=== PATIENT | female | born 1985 | race Caucasian/White ===

== ENCOUNTER 2017-12-24 01:32 | Emergency (ER) | payer BC ==
[2017-12-24 01:38] VITALS: RESP 18
[2017-12-24] MEDS ORDERED: SODIUM CHLORIDE 0.9% 1,000 ML IV ONE (02:08)
[2017-12-24] MEDS ORDERED: FAMOTIDINE 20 MG/2 ML VIAL IV STA (02:26)
[2017-12-24] MEDS ORDERED: DICYCLOMINE 10 MG/ML 2 ML AMP IM STA (02:30)
--- NOTE | 2017-12-24 02:30 | ED ---
General Adult HPI - General Chief complaint: Abdominal Pain Stated complaint: Abd pain-18wks Time Seen by Provider: 12/24/17 01:41 Source: patient Mode of arrival: ambulatory Limitations: no limitations - History of Present Illness Initial comments: Sofiya is a female at 18 weeks gestation since the emergency department today for evaluation of nausea, vomiting and diarrhea. Patient reports that she was in her usual state of health throughout the day, she attended [employer] and then her family have lunch at the [employer]. She does report that she ate some crab [place] at the [employer] and she wasn't certain that it tasted right. She reports that she had some mild nausea but was able to go to sleep. She woke from sleep and had multiple episodes of nonbloody nonbilious emesis and multiple episodes of nonbloody diarrhea. She complains of some epigastric abdominal discomfort but reports that upon arrival her nausea has subsided. She does still feel the urge to have a bowel movement. Denies any right upper quadrant abdominal pain, any right lower quadrant abdominal pain or any cramping. She reports that she can still feel the baby move, she's not had any vaginal bleeding, fluid from the vagina cramping or contractions. - Related Data Home Medications Medication Instructions Recorded Confirmed Pnv,Calcium 72/Iron/Folic Acid 1 tab PO DAILY 04/23/15 04/23/15 [Pnv Plus Multivit Tab] Previous Rx's Medication Instructions Recorded Acetaminophen-Codeine 300-30mg 1 - 2 each PO Q4HR PRN #30 tab 04/24/15 [Tylenol w/codeine #3] Ibuprofen [Motrin] 600 mg PO Q6HR PRN #40 tab 04/24/15 Allergies Allergy/AdvReac Type Severity Reaction Status Date / Time No Known Allergies Allergy Verified 12/24/17 01:38 Review of Systems ROS Statement: Those systems with pertinent positive or pertinent negative responses have been documented in the HPI. ROS Other: All systems not noted in ROS Statement are negative. Past Medical History Past Medical History: No Reported History History of Any Multi-Drug Resistant Organisms: None Reported Past Surgical History: No Surgical Hx Reported Past Anesthesia/Blood Transfusion Reactions: No Reported Reaction Past Psychological History: No Psychological Hx Reported Smoking Status: Never smoker Past Alcohol Use History: None Reported Past Drug Use History: None Reported - Past Family History Father Family Medical History: No Reported History General Exam Limitations: no limitations General appearance: alert, in no apparent distress Head exam: Present: atraumatic, normocephalic Eye exam: Present: normal appearance, PERRL ENT exam: Present: normal exam Neck exam: Present: normal inspection Respiratory exam: Present: normal lung sounds bilaterally. Absent: respiratory distress Cardiovascular Exam: Present: regular rate, normal rhythm GI/Abdominal exam: Present: soft, hyperactive bowel sounds, other (Gravid uterus ). Absent: tenderness, guarding, rebound, rigid, hernia Rectal exam: Present: deferred Extremities exam: Present: normal inspection, full ROM. Absent: pedal edema Neurological exam: Present: alert, oriented X3 Psychiatric exam: Present: normal affect, normal mood Skin exam: Present: warm, dry, intact Course Vital Signs 12/24/17 01:35 Temperature 98.2 F Pulse Rate 99 Respiratory 18 Rate Blood Pressure 132/91 O2 Sat by Pulse 99 Oximetry Medical Decision Making - Medical Decision Making Patient was seen and evaluated, history is obtained from the patient She is a well-appearing 32-year-old female with 2 hours of nausea, vomiting and diarrhea. She is currently 18 weeks but not experiencing any abdominal cramping, vaginal bleeding, vaginal discharge or fluid from the vagina. Concern for food bilirubin illness Bedside ultrasound reveals a normal gallbladder, the appendix was not visualized in the right lower or upper quadrant peristalsis of the bowels was visualized on ultrasound In addition bedside ultrasound revealed an active fetus, heart rate in the 140s Patient was treated with IV fluids, Pepcid and Bentyl Labs reveal mild leukocytosis, normal lipase, normal liver function, normal electrolytes Lab results were discussed with the patient who has had no further episodes of diarrhea or vomiting while in the emergency department. She does state she still feels the urge to have a bowel movement but has not had one. She states she is feeling much better. At this time the patient is agreeable for plan for discharge home with supportive care and discussed the importance of oral rehydration therapy. All questions pertaining care were answered best my ability patient was discharged home in stable condition and advised follow-up with her sky line yarder this week. - Lab Data Result diagrams: 12/24/17 02:55 12/24/17 02:55 Lab Results 12/24/17 12/24/17 12/24/17 Range/Units 02:55 02:55 02:55 WBC 11.5 H (3.8-10.6) k/uL RBC 4.54 (3.80-5.40) m/uL Hgb 14.9 (11.4-16.0) gm/dL Hct 43.7 (34.0-46.0) % MCV 96.2 (80.0-100.0) fL MCH 32.9 (25.0-35.0) pg MCHC 34.2 (31.0-37.0) g/dL RDW 14.1 (11.5-15.5) % Plt Count 240 (150-450) k/uL Neutrophils % 68 % Lymphocytes % 25 % Monocytes % 4 % Eosinophils % 1 % Basophils % 0 % Neutrophils # 7.9 H (1.3-7.7) k/uL Lymphocytes # 2.9 (1.0-4.8) k/uL Monocytes # 0.5 (0-1.0) k/uL Eosinophils # 0.1 (0-0.7) k/uL Basophils # 0.0 (0-0.2) k/uL Sodium 137 (137-145) mmol/L Potassium 3.9 (3.5-5.1) mmol/L Chloride 109 H (98-107) mmol/L Carbon Dioxide 19 L (22-30) mmol/L Anion Gap 9 mmol/L BUN 8 (7-17) mg/dL Creatinine 0.50 L (0.52-1.04) mg/dL Est GFR (CKD-EPI)AfAm >90 (>60 ml/min/1.73 sqM) Est GFR (CKD-EPI)NonAf >90 (>60 ml/min/1.73 sqM) Glucose 84 (74-99) mg/dL Calcium 9.5 (8.4-10.2) mg/dL Total Bilirubin 0.3 (0.2-1.3) mg/dL AST 21 (14-36) U/L ALT 27 (9-52) U/L Alkaline Phosphatase 66 (38-126) U/L Total Protein 6.7 (6.3-8.2) g/dL Albumin 4.0 (3.5-5.0) g/dL Lipase 74 (23-300) U/L Urine Color Dark Yellow Urine Appearance Cloudy H (Clear) Urine pH 5.0 (5.0-8.0) Ur Specific [place] 1.022 (1.001-1.035) Urine Protein Trace H (Negative) Urine Glucose (UA) Negative (Negative) Urine Ketones Negative (Negative) Urine Blood Negative (Negative) Urine Nitrite Negative (Negative) Urine Bilirubin Negative (Negative) Urine Urobilinogen <2.0 (<2.0) mg/dL Ur Leukocyte Esterase Trace H (Negative) Urine RBC <1 (0-5) /hpf Urine WBC 4 (0-5) /hpf Ur Squamous Epith Cells 4 (0-4) /hpf Calcium Oxalate Crystal Moderate H (None) /hpf Urine Mucus Occasional H (None) /hpf Disposition Clinical Impression: Nausea vomiting and diarrhea Disposition: HOME SELF-CARE Condition: Good Is patient prescribed a controlled substance at d/c from ED?: No Referrals: Alexandra Mejia MD [Primary Care Provider] - 1-2 days Time of Disposition: 03:47
[2017-12-24 03:15] LABS: Basophils % (A) 0 %; Eosinophils # (A) 0.1 k/uL (0-0.7); Eosinophils % (A) 1 %; HCT 43.7 % (34.0-46.0); HGB 14.9 gm/dL (11.4-16.0); Lymphocytes # (A) 2.9 k/uL (1.0-4.8); Lymphocytes % (A) 25 %; MCH 32.9 pg (25.0-35.0); MCHC 34.2 g/dL (31.0-37.0); MCV 96.2 fL (80.0-100.0); Monocytes # (A) 0.5 k/uL (0-1.0); Monocytes % (A) 4 %; Neutrophils # (A) 7.9 k/uL (1.3-7.7); Neutrophils % (A) 68 %; Platelet Count 240 k/uL (150-450); RBC 4.54 m/uL (3.80-5.40); RDW 14.1 % (11.5-15.5); WBC 11.5 k/uL (3.8-10.6)
[2017-12-24 03:29] LABS: ALT 27 U/L (9-52); AST 21 U/L (14-36); Alkaline Phosphatase 66 U/L (38-126); Anion Gap 9 mmol/L; Appearance,Urine Cloudy (Clear); Bilirubin,Urine Negative (Negative); Blood Urea Nitrogen 8 mg/dL (7-17); Blood,Urine Negative (Negative); Calcium 9.5 mg/dL (8.4-10.2); Calcium Oxalate Crystals,Urine Moderate /hpf; Carbon Dioxide 19 mmol/L (22-30); Chloride 109 mmol/L (98-107); Color,Urine Dark Yellow; Glucose 84 mg/dL (74-99); Glucose,Urine (UA) Negative (Negative); Ketones,Urine Negative (Negative); Leukocyte Esterase,Urine Trace (Negative); Lipase 74 U/L (23-300); Mucus,Urine Occasional /hpf; Nitrite,Urine Negative (Negative); Potassium 3.9 mmol/L (3.5-5.1); Protein,Urine Trace (Negative); RBC,Urine <1 /hpf (0-5); Sodium 137 mmol/L (137-145); Specific Gravity,Urine 1.022 (1.001-1.035); Squamous Epithelial Cell,Urine 4 /hpf (0-4); Total Bilirubin 0.3 mg/dL (0.2-1.3); Total Protein 6.7 g/dL (6.3-8.2); Urobilinogen,Urine <2.0 mg/dL (<2.0); WBC,Urine 4 /hpf (0-5)
[2017-12-24 04:05] VITALS: BP 124/59; PULSE 74; TEMP 98
== END 2017-12-24 04:04 | disposition home or self-care (01) ==
LOC: EC 01:32
DX: O21.9 Vomiting of pregnancy, unspecified (principal); O26.892 Other specified pregnancy related conditions, second trimester; R10.13 Epigastric pain; O99.89 Other specified diseases and conditions complicating pregnancy, childbirth and the puerperium; R19.7 Diarrhea, unspecified; Z3A.18 18 weeks gestation of pregnancy
CPT/HCPCS: 36415; 80053; 83690; 85025; 81001; 99284; 96374; 96361; 96372; J0500

== ENCOUNTER 2018-05-21 05:50 | Inpatient (IN) | payer BC ==
--- NOTE | 2018-05-20 11:32 | P.HPOB ---
History of Present Illness H&P Date: 05/20/18 Chief Complaint: Requested induction of labor. This patient is a pleasant 33-year-old 6 para 3 female estimated date of confinement 05/26/2018 estimated gestational age 39-2/7 weeks who is requesting induction of labor secondary to large for gestational age and maternal discomfort. Patient's care has been uncomplicated. Ultrasound done approximately 5 days ago showed the fetus to be 8 lbs. 6 oz. Patient's 3 previous other deliveries were 9 pounds without problems. Patient' s care otherwise is uncomplicated. Patient is requested delivery at this time. Review of Systems Gastrointestinal: Reports heartburn Genitourinary: Reports Menstruation: Reports amenorrhea Past Medical History Past Medical History: No Reported History History of Any Multi-Drug Resistant Organisms: None Reported Past Surgical History: No Surgical Hx Reported Past Anesthesia/Blood Transfusion Reactions: No Reported Reaction Past Psychological History: Anxiety, Depression Smoking Status: Never smoker Past Alcohol Use History: None Reported Past Drug Use History: None Reported - Past Family History Father Family Medical History: No Reported History Medications and Allergies Home Medications Medication Instructions Recorded Confirmed Type Pnv,Calcium 72/Iron/Folic Acid 1 tab PO DAILY 04/23/15 04/23/15 History [Pnv Plus Multivit Tab] Acetaminophen-Codeine 300-30mg 1 - 2 each PO Q4HR PRN #30 tab 04/24/15 Rx [Tylenol w/codeine #3] Ibuprofen [Motrin] 600 mg PO Q6HR PRN #40 tab 04/24/15 Rx Allergies Allergy/AdvReac Type Severity Reaction Status Date / Time No Known Allergies Allergy Verified 12/24/17 01:38 Exam - OBG Physical Exam Abdomen: bowel sounds normal, no diffuse tenderness, no bruit present, no guarding noted, no hepatomegaly, no splenomegaly, no mass Vulva: both: normal Vagina: normal moisture, no discharge Cervix: Cervix in the office shows her to be 3 cm dilated 50% effaced -2 station. Cervix: no lesion, no discharge Uterus: enlarged (Fundal height 39 cm) Results blood work shows she is O-, rubella immune, RPR nonreactive, hepatitis B negative, Glucola was normal, ultrasounds have been normal for anatomy, group B strep was positive. Most recent ultrasound done on May 15 showed the baby 8 lbs. 6 oz. Assessment and Plan Assessment: This patient is a pleasant 33-year-old 6 para 3 female 39-2/7 weeks gestation who presents to labor and delivery for requested induction of labor. Patient is a positive group B strep culture. Plan is antibiotic prophylaxis, induction of labor per protocol, and anticipate vaginal delivery. (1) Elective induction of labor planned Status: Acute Code(s): ZKD0064 - SNOMED Code(s): 323477818 (2) Rh negative status during Status: Acute Code(s): O09.899 - SUPERVISION OF OTHER HIGH RISK PREGNANCIES, UNSP TRIMESTER SNOMED Code(s): 346897996 (3) Group B streptococcal carriage complicating Status: Acute Code(s): O99.820 - STREPTOCOCCUS B CARRIER STATE COMPLICATING SNOMED Code(s): 163735709094767
[2018-05-21] MEDS ORDERED: TERBUTALINE 1 MG/ML VIAL SQ PRN (06:07)
[2018-05-21] MEDS ORDERED: OXYTOCIN 10 UNIT/ML 1 ML VIAL IM PRN (06:07)
[2018-05-21] MEDS ORDERED: CARBOPROST TROMETHAMINE 250 MCG/ML 1 ML AMP IM PRN (06:07)
[2018-05-21] MEDS ORDERED: OXYTOCIN 20 UNITS/1000 ML NS 1,000 ML IV SCH ×2 (06:07→15:26)
[2018-05-21] MEDS ORDERED: LIDOCAINE 1% INJ 10MG/ML (20 ML MDV) SQ PRN (06:07)
[2018-05-21] MEDS ORDERED: METHYLERGONOVINE 0.2 MG/ML 1 ML AMP IM PRN (06:07)
[2018-05-21 06:41] VITALS: BMI 38.1
[2018-05-21 06:42] LABS: Basophils % (A) 0 %; Eosinophils # (A) 0.2 k/uL (0-0.7); Eosinophils % (A) 2 %; HCT 37.5 % (34.0-46.0); HGB 13.3 gm/dL (11.4-16.0); Lymphocytes # (A) 2.4 k/uL (1.0-4.8); Lymphocytes % (A) 23 %; MCH 35.1 pg (25.0-35.0); MCHC 35.4 g/dL (31.0-37.0); MCV 99.1 fL (80.0-100.0); Mean Platelet Volume 7.1; Monocytes # (A) 0.7 k/uL (0-1.0); Monocytes % (A) 7 %; Neutrophils # (A) 6.7 k/uL (1.3-7.7); Neutrophils % (A) 66 %; Platelet Count 184 k/uL (150-450); Poikilocytosis Slight; RBC 3.78 m/uL (3.80-5.40); RDW 14.2 % (11.5-15.5); WBC 10.1 k/uL (3.8-10.6)
[2018-05-21] MEDS: LACTATED RINGERS 1,000 ML IV SCH ×2 (06:43→10:39)
[2018-05-21] MEDS ORDERED: AMPICILLIN 2,000 MG in SODIUM CHLORIDE 0.9% 100 ML IVPB ONE (07:00)
[2018-05-21] MEDS ORDERED: fentaNYL (PF) 50 MCG/ML 5 ML AMP ONE (10:27)
[2018-05-21] MEDS ORDERED: ROPIVACAINE 5MG/ML 20ML VIAL ONE (10:27)
[2018-05-21] MEDS ORDERED: SODIUM CHLORIDE 0.9% 100 ML BAG ONE (10:27)
[2018-05-21] MEDS ORDERED: AMPICILLIN 1,000 MG in SODIUM CHLORIDE 0.9% 50 ML IVPB SCH (11:00)
[2018-05-21] MEDS ORDERED: ROPIVACAINE 100 MG, fentaNYL (PF) 200 MCG in SODIUM CHLORIDE 0.9% 76 ML EPIDURAL ONE (14:32)
[2018-05-21] MEDS: IBUPROFEN 600 MG TAB PO PRN ×2 (14:50→21:03)
[2018-05-21] MEDS ORDERED: BISACODYL 10 MG SUPP RECTAL PRN (15:26)
[2018-05-21] MEDS ORDERED: BENZOCAINE/MENTHOL SPRAY 1 GM/SPRAY AEROSOL TOPICAL PRN (15:26)
[2018-05-21] MEDS ORDERED: LANOLIN CREAM 5 GM TUBE TOPICAL PRN (15:26)
[2018-05-21] MEDS ORDERED: ZOLPIDEM 5 MG TAB PO PRN (15:26)
[2018-05-21] MEDS ORDERED: HYDROCORTISONE 2.5% RECTAL CREAM 30 GM TUBE RECTAL PRN (15:26)
[2018-05-21] MEDS ORDERED: SIMETHICONE 80 MG CHEWABLE PO PRN (15:26)
[2018-05-21] MEDS ORDERED: WITCH HAZEL 1 EACH MED..PAD TOPICAL PRN (15:26)
[2018-05-21] MEDS ORDERED: diphenhydrAMINE 25 MG CAP PO PRN (15:26)
[2018-05-21] MEDS ORDERED: ACETAMINOPHEN TAB 325 MG TAB PO PRN (15:26)
[2018-05-21] MEDS ORDERED: diphenhydrAMINE 50 MG/ML 1 ML VIAL IVP PRN (15:26)
--- NOTE | 2018-05-21 18:03 | P.PROBDLV ---
Vaginal Delivery Note - . Vaginal Delivery Note: Normal vaginal delivery viable male infant Apgars 8 and 9 delivery time is 1439 hrs. Please see dictated H&P for intimate details of this patient's admission. Brief summary this is a pleasant 33-year-old 6 para 3 female estimated gestational age 39-2/7 weeks who is admitted to labor and delivery for elective induction. Patient has a positive group B strep culture and therefore started on ampicillin on admission. She is artificial rupture membranes for clear fluid and Pitocin augmentation of labor. Labor progresses normally and she does get an epidural for pain control. Patient progresses normally gets to complete. She pushes approximately 3 times pushes the head to the perineum. Posterior perineum is supported and we have controlled delivery of the infant's head over the intact perineum. There is a nuchal cord which is easily reduced. With gentle downward traction we then have deliver the anterior posterior shoulder and rest this infant's body. This is a vigorous viable male infant has spontaneous respirations and good cry. After delivery of the is late on the mother's abdomen the cord was allowed to continue pulsating. After this the umbilical cord is clamped and transected appears to be trivascular. The placenta is then spontaneously delivered intact. Inspection of the perineum shows a small first-degree posterior laceration which is repaired with 3-0 Vicryl in the usual fashion. Excellent reapproximation is noted. Estimated blood loss is 100 mL. There are no complications. All counts are correct 3.
[2018-05-21 20:43] VITALS: PULSE 84; RESP 16
[2018-05-21] MEDS: SENNOSIDES-DOCUSATE SODIUM 1 EACH TAB PO SCH ×2 (21:03→21:04)
[2018-05-22] MEDS ORDERED: ACETAMINOPHEN TAB 325 MG TAB ONE (01:17)
[2018-05-22] MEDS: IBUPROFEN 600 MG TAB PO PRN ×2 (05:07→13:13)
--- NOTE | 2018-05-22 06:32 | P.PNOBGVD ---
Subjective - Subjective Patient reports: Reports appetite normal, Reports voiding normally, Reports pain well controlled, Reports ambulating normally : doing well Objective - Latest Vital Signs Latest vital signs: Vital Signs Temp Pulse Pulse Resp BP 05/21/18 20:00 97.3 F L 84 16 126/73 05/21/18 16:45 96.9 F L 83 15 125/73 05/21/18 16:33 91 16 121/59 05/21/18 16:15 104 H 16 126/72 05/21/18 15:30 93 15 119/65 05/21/18 15:15 96 16 129/64 05/21/18 15:00 93 15 125/63 05/21/18 14:45 99.0 F 94 15 132/76 Intake and Output 05/21/18 05/21/18 05/22/18 14:59 22:59 06:59 Other: # Voids 1 - Exam Lungs: bilateral: normal Chest: Normal S1, Normal S2 Extremities: Present: normal Abdomen: Present: normal appearance, soft Uterus: Present: normal, firm - Labs Labs: Abnormal Lab Results - Last 24 Hours (Table) 05/21/18 Range/Units 06:15 RBC 3.78 L (3.80-5.40) m/uL MCH 35.1 H (25.0-35.0) pg Assessment and Plan Assessment: day #1. Patient is resting without complaints and wishes to go home. Vital signs are stable she's afebrile. Uterus is firm nontender and she is having normal lochia. My impression is this is a normal course. Plan is to continue routine care discharge home later today. (1) Elective induction of labor planned Current Visit: No Status: Acute Code(s): SNX2757 - SNOMED Code(s): 015387043 (2) Rh negative status during Current Visit: No Status: Acute Code(s): O09.899 - SUPERVISION OF OTHER HIGH RISK PREGNANCIES, UNSP TRIMESTER SNOMED Code(s): 620662810 (3) Group B streptococcal carriage complicating Current Visit: No Status: Acute Code(s): O99.820 - STREPTOCOCCUS B CARRIER STATE COMPLICATING SNOMED Code(s): 410633369347934
--- NOTE | 2018-05-22 06:42 | P.DS ---
Providers Date of admission: 05/21/18 05:50 Expected date of discharge: 05/22/18 Attending physician: Dilip Sosa Primary care physician: Alexandra Mejia - Discharge Diagnosis(es) (1) Elective induction of labor planned Current Visit: No Status: Acute (2) Rh negative status during Current Visit: No Status: Acute (3) Group B streptococcal carriage complicating Current Visit: No Status: Acute Hospital Course: Please see dictated H&P for intimate details of this patient's admission. Brief summary this pleasant 33-year-old 6 para 3 female 39-2/7 weeks gestation admitted to labor and delivery for requested induction of labor. Patient is uncomplicated induction of labor quickly goes on have a vaginal delivery viable male infant. Please see dictated delivery note. day #1 patient wishes to go home as felt be stable for discharge home follow up with me in 6 weeks. Procedures: Induction of labor and normal vaginal delivery Patient Condition at Discharge: Good Plan - Discharge Summary New Discharge Prescriptions: New Ibuprofen [Motrin] 600 mg PO Q6HR PRN #40 tab PRN Reason: Mild Pain Or Fever >= 100.5 No Action Pnv,Calcium 72/Iron/Folic Acid [Pnv Plus Multivit Tab] 1 tab PO DAILY Discharge Medication List Pnv,Calcium 72/Iron/Folic Acid [Pnv Plus Multivit Tab] 1 tab PO DAILY 04/23/15 [History] Ibuprofen [Motrin] 600 mg PO Q6HR PRN #40 tab 05/22/18 [Rx] Follow up Appointment(s)/Referral(s): Dilip Sosa MD [STAFF PHYSICIAN] - 07/02/18 2:30 pm Patient Instructions/Handouts: Vaginal Delivery (DC) Activity/Diet/Wound Care/Special Instructions: No intercourse or anything per vagina for 6 weeks. Please call if any fever, chills, excessive vaginal bleeding, and/or abdominal pain. Discharge Disposition: HOME SELF-CARE
[2018-05-22] MEDS ORDERED: DIPH,PERTUS(ACELL)TETVAC-LF 0.5 ML VIAL IM ONE (07:54)
[2018-05-22] MEDS: SENNOSIDES-DOCUSATE SODIUM 1 EACH TAB PO SCH (07:55)
[2018-05-22 11:51] VITALS: BP 108/64; TEMP 97
== END 2018-05-22 15:54 | disposition home or self-care (01) | DRG 807 ==
LOC: 4FBP 05:50
PROVIDERS: ADMIT Obstetrics & Gynecology; ATTEND Obstetrics & Gynecology
PROC: 10E0XZZ Delivery of Products of Conception, External Approach (ICD-10-PCS; principal; 2018-05-21)
PROC: 0HQ9XZZ Repair Perineum Skin, External Approach (ICD-10-PCS; 2018-05-21)
PROC: 3E033VJ Introduction of Other Hormone into Peripheral Vein, Percutaneous Approach (ICD-10-PCS; 2018-05-21)
PROC: 10907ZC Drainage of Amniotic Fluid, Therapeutic from Products of Conception, Via Natural or Artificial Opening (ICD-10-PCS; 2018-05-21)
PROC: 3E0234Z Introduction of Serum, Toxoid and Vaccine into Muscle, Percutaneous Approach (ICD-10-PCS; 2018-05-22)
DX: O99.824 Streptococcus B carrier state complicating childbirth (principal); Z37.0 Single live birth; B95.1 Streptococcus, group B, as the cause of diseases classified elsewhere; O69.81X0 Labor and delivery complicated by cord around neck, without compression, not applicable or unspecified; O70.0 First degree perineal laceration during delivery; O26.893 Other specified pregnancy related conditions, third trimester; Z67.91 Unspecified blood type, Rh negative; Z3A.39 39 weeks gestation of pregnancy; Z23 Encounter for immunization; Z79.899 Other long term (current) drug therapy; Z86.59 Personal history of other mental and behavioral disorders
CPT/HCPCS: 85025; 86850; 86870; 86880; 86900; 86901; 90715

== ENCOUNTER 2018-05-28 07:49 | Inpatient (IN) | payer BC ==
--- NOTE | 2018-05-28 08:06 | ED ---
General Adult HPI - General Chief complaint: Chest Pain Stated complaint: chest pain Source: patient Mode of arrival: wheelchair Limitations: no limitations - Related Data Home Medications Medication Instructions Recorded Confirmed Amoxicillin 250 mg PO Q8H 05/28/18 05/28/18 Previous Rx's Medication Instructions Recorded Ibuprofen [Motrin] 600 mg PO Q6HR PRN #40 tab 05/22/18 Labetalol [Trandate] 100 mg PO BID #12 tablet 05/28/18 Allergies Allergy/AdvReac Type Severity Reaction Status Date / Time No Known Allergies Allergy Verified 05/28/18 08:12 Review of Systems ROS Statement: Those systems with pertinent positive or pertinent negative responses have been documented in the HPI. ROS Other: All systems not noted in ROS Statement are negative. Past Medical History Past Medical History: No Reported History History of Any Multi-Drug Resistant Organisms: None Reported Past Surgical History: No Surgical Hx Reported Past Anesthesia/Blood Transfusion Reactions: No Reported Reaction Past Psychological History: Anxiety, Depression Smoking Status: Never smoker Past Alcohol Use History: None Reported Past Drug Use History: None Reported - Past Family History Father Family Medical History: COPD General Exam Limitations: no limitations Course Vital Signs 05/28/18 05/28/18 05/28/18 07:51 09:00 09:30 Temperature 97.8 F Pulse Rate 64 53 L 59 L Respiratory 18 17 18 Rate Blood Pressure 162/100 163/104 169/102 O2 Sat by Pulse 99 96 97 Oximetry 05/28/18 05/28/18 05/28/18 10:00 11:00 11:30 Temperature Pulse Rate 91 60 59 L Respiratory 18 19 17 Rate Blood Pressure 163/105 160/102 153/95 O2 Sat by Pulse 99 97 98 Oximetry 05/28/18 12:16 Temperature Pulse Rate 63 Respiratory Rate Blood Pressure 145/99 O2 Sat by Pulse 98 Oximetry Medical Decision Making - Medical Decision Making Dictation was produced using [employer] dictation software. please excuse any grammatical, word or spelling errors. Chief Complaint: 33-year-old female who is one week from her third presents with chest pain History of Present Illness: 33-year-old female who is one week from her third presents with chest pain. She states that her symptoms began yesterday. She called Dr. Chinchilla who over the phone prescribed her medications for mastitis. Patient states she had not had symptoms like this for her other pregnancies. States that her bilateral breast were painful [address] Chinchilla provided her with antibiotics to treat mastitis. He called the office today her symptoms is told to come to the emergency department. Patient denies any constitutional symptoms. States the pain is in the middle of her back that she does also report having flulike symptoms. The ROS documented in this emergency department record has been reviewed and confirmed by me. Those systems with pertinent positive or negative responses have been documented in the HPI. All other systems are other negative and/or noncontributory. PHYSICAL EXAM: General Impression: Alert and oriented x3, not in acute distress HEENT: Normocephalic atraumatic, extra-ocular movements intact, pupils equal and reactive to light bilaterally, mucous membranes moist. Cardiovascular: Heart regular rate and rhythm, S1&S2 audible, no murmurs, rubs or gallops Chest: Lungs clear to auscultation bilaterally, no rhonchi, no wheeze, no rales Abdomen: Bowel sounds present, abdomen soft, non-tender, non-distended, no organomegaly Musculoskeletal: Pulses present and equal in all extremities, no peripheral edema Motor: Power 5/5 bilaterally, no focal deficits noted Neurological: CN II-XII grossly intact, no focal motor or sensory deficits noted Skin: Intact with no visualized rashes Psych: Normal affect and mood ED course: 33 y old female one week presents with chief complaint of chest pain. Vital signs shows blood pressure 160/100, rest of vital signs within acceptable limits.Laboratory evaluation obtained. CBC unremarkable. Metabolic panel is unremarkable. No transaminitis. D-dimer was obtained which is findings are 0.1. Urinalysis does not show proteinuria. Urinalysis is otherwise unremarkable. Chest x-ray was obtained showing no acute processes. CT angioma did not demonstrate any pulmonary embolus. Shoulder x-rays were not ordered by me and was an error. However there are read as unremarkable. Patient's blood pressure continued to be 160s systolic. She is given 20 mg labetalol bolus push. Discussed patient case with Dr. Sosa who believes patient is amenable for discharge. At this point there is no clinical suspicion of preeclampsia. Dr. Sosa recommended patient be discharged with a prescription for by mouth labetalol twice a day. She is also told to follow- up on . EKG interpretation: Ventricular rate 56, sinus bradycardia, VA interval 164, Q 76, QTC 378. No VA prolongation, no QTC prolongation, no ST or T-wave changes noted. Overall, this EKG is unremarkable - Lab Data Result diagrams: 05/28/18 08:55 05/28/18 08:55 Lab Results 05/28/18 05/28/18 05/28/18 Range/Units 08:55 08:55 08:55 WBC 7.9 (3.8-10.6) k/uL RBC 4.20 (3.80-5.40) m/uL Hgb 14.3 (11.4-16.0) gm/dL Hct 41.7 (34.0-46.0) % MCV 99.3 (80.0-100.0) fL MCH 34.1 (25.0-35.0) pg MCHC 34.4 (31.0-37.0) g/dL RDW 13.3 (11.5-15.5) % Plt Count 270 (150-450) k/uL Neutrophils % 73 % Lymphocytes % 18 % Monocytes % 4 % Eosinophils % 2 % Basophils % 0 % Neutrophils # 5.8 (1.3-7.7) k/uL Lymphocytes # 1.5 (1.0-4.8) k/uL Monocytes # 0.3 (0-1.0) k/uL Eosinophils # 0.2 (0-0.7) k/uL Basophils # 0.0 (0-0.2) k/uL D-Dimer (<0.60) mg/L FEU Sodium 143 (137-145) mmol/L Potassium 4.4 (3.5-5.1) mmol/L Chloride 110 H (98-107) mmol/L Carbon Dioxide 26 (22-30) mmol/L Anion Gap 7 mmol/L BUN 11 (7-17) mg/dL Creatinine 0.75 (0.52-1.04) mg/dL Est GFR (CKD-EPI)AfAm >90 (>60 ml/min/1.73 sqM) Est GFR (CKD-EPI)NonAf >90 (>60 ml/min/1.73 sqM) Glucose 82 (74-99) mg/dL Calcium 9.4 (8.4-10.2) mg/dL Magnesium 2.0 (1.6-2.3) mg/dL Total Bilirubin 0.6 (0.2-1.3) mg/dL AST 23 (14-36) U/L ALT 48 (9-52) U/L Alkaline Phosphatase 95 (38-126) U/L Lactate Dehydrogenase 714 H (313-618) U/L Total Protein 6.4 (6.3-8.2) g/dL Albumin 3.7 (3.5-5.0) g/dL Urine Color Light Yellow Urine Appearance Clear (Clear) Urine pH 7.0 (5.0-8.0) Ur Specific [place] 1.005 (1.001-1.035) Urine Protein Negative (Negative) Urine Glucose (UA) Negative (Negative) Urine Ketones Negative (Negative) Urine Blood Moderate H (Negative) Urine Nitrite Negative (Negative) Urine Bilirubin Negative (Negative) Urine Urobilinogen <2.0 (<2.0) mg/dL Ur Leukocyte Esterase Small H (Negative) Urine RBC 2 (0-5) /hpf Urine WBC 4 (0-5) /hpf Ur Squamous Epith Cells 1 (0-4) /hpf 05/28/18 Range/Units 08:55 WBC (3.8-10.6) k/uL RBC (3.80-5.40) m/uL Hgb (11.4-16.0) gm/dL Hct (34.0-46.0) % MCV (80.0-100.0) fL MCH (25.0-35.0) pg MCHC (31.0-37.0) g/dL RDW (11.5-15.5) % Plt Count (150-450) k/uL Neutrophils % % Lymphocytes % % Monocytes % % Eosinophils % % Basophils % % Neutrophils # (1.3-7.7) k/uL Lymphocytes # (1.0-4.8) k/uL Monocytes # (0-1.0) k/uL Eosinophils # (0-0.7) k/uL Basophils # (0-0.2) k/uL D-Dimer 0.81 H (<0.60) mg/L FEU Sodium (137-145) mmol/L Potassium (3.5-5.1) mmol/L Chloride (98-107) mmol/L Carbon Dioxide (22-30) mmol/L Anion Gap mmol/L BUN (7-17) mg/dL Creatinine (0.52-1.04) mg/dL Est GFR (CKD-EPI)AfAm (>60 ml/min/1.73 sqM) Est GFR (CKD-EPI)NonAf (>60 ml/min/1.73 sqM) Glucose (74-99) mg/dL Calcium (8.4-10.2) mg/dL Magnesium (1.6-2.3) mg/dL Total Bilirubin (0.2-1.3) mg/dL AST (14-36) U/L ALT (9-52) U/L Alkaline Phosphatase (38-126) U/L Lactate Dehydrogenase (313-618) U/L Total Protein (6.3-8.2) g/dL Albumin (3.5-5.0) g/dL Urine Color Urine Appearance (Clear) Urine pH (5.0-8.0) Ur Specific [place] (1.001-1.035) Urine Protein (Negative) Urine Glucose (UA) (Negative) Urine Ketones (Negative) Urine Blood (Negative) Urine Nitrite (Negative) Urine Bilirubin (Negative) Urine Urobilinogen (<2.0) mg/dL Ur Leukocyte Esterase (Negative) Urine RBC (0-5) /hpf Urine WBC (0-5) /hpf Ur Squamous Epith Cells (0-4) /hpf Disposition Clinical Impression: Chest pain Disposition: HOME SELF-CARE Condition: Poor Instructions: Chest Pain (ED) Prescriptions: Labetalol [Trandate] 100 mg PO BID #12 tablet Is patient prescribed a controlled substance at d/c from ED?: No Referrals: Alexandra Mejia MD [Primary Care Provider] - 1-2 days Dilip Sosa MD [STAFF PHYSICIAN] - 1-2 days Time of Disposition: 12:48
--- NOTE | 2018-05-28 08:39 | XR ---
EXAMINATION TYPE: XR shoulder complete LT DATE OF EXAM: 05/28/2018 CLINICAL HISTORY: Left shoulder pain week after having baby. TECHNIQUE: Three views of the left shoulder are obtained. COMPARISON: None. FINDINGS: There is no acute fracture/dislocation evident in the left shoulder. The acromioclavicula r and glenohumeral joint spaces appear within normal limits. The visualized ribs are intact and unre markable. IMPRESSION: Unremarkable study.
--- NOTE | 2018-05-28 08:39 | XR ---
EXAMINATION TYPE: XR chest 2V DATE OF EXAM: 05/28/2018 COMPARISON: 07/06/2014 HISTORY: Neck, shoulder and chest pain. 7 days TECHNIQUE: Frontal and lateral views of the chest are obtained. FINDINGS: There is no focal air space opacity, pleural effusion, or pneumothorax seen. The cardiac silhouette size is within normal limits. The osseous structures are intact. No pneumoperitoneum is seen in the upper abdomen. IMPRESSION: No acute cardiopulmonary process. No pneumoperitoneum noted in the upper abdomen.
[2018-05-28 09:20] LABS: Basophils % (A) 0 %; Eosinophils # (A) 0.2 k/uL (0-0.7); Eosinophils % (A) 2 %; HCT 41.7 % (34.0-46.0); HGB 14.3 gm/dL (11.4-16.0); Lymphocytes # (A) 1.5 k/uL (1.0-4.8); Lymphocytes % (A) 18 %; MCH 34.1 pg (25.0-35.0); MCHC 34.4 g/dL (31.0-37.0); MCV 99.3 fL (80.0-100.0); Mean Platelet Volume 6.6; Monocytes # (A) 0.3 k/uL (0-1.0); Monocytes % (A) 4 %; Neutrophils # (A) 5.8 k/uL (1.3-7.7); Neutrophils % (A) 73 %; Platelet Count 270 k/uL (150-450); RDW 13.3 % (11.5-15.5); WBC 7.9 k/uL (3.8-10.6)
[2018-05-28] MEDS: MAGNESIUM SULFATE-D5W PMX 1 GM in DEXTROSE/WATER 1 100ML.BAG IVPB SCH ×2 (09:28→10:55)
[2018-05-28 09:29] LABS: ALT 48 U/L (9-52); AST 23 U/L (14-36); Albumin 3.7 g/dL (3.5-5.0); Alkaline Phosphatase 95 U/L (38-126); Anion Gap 7 mmol/L; Appearance,Urine Clear (Clear); Bilirubin,Urine Negative (Negative); Blood Urea Nitrogen 11 mg/dL (7-17); Blood,Urine Moderate (Negative); Calcium 9.4 mg/dL (8.4-10.2); Carbon Dioxide 26 mmol/L (22-30); Chloride 110 mmol/L (98-107); Color,Urine Light Yellow; Glucose 82 mg/dL (74-99); Glucose,Urine (UA) Negative (Negative); Ketones,Urine Negative (Negative); LDH 714 U/L (313-618); Leukocyte Esterase,Urine Small (Negative); Nitrite,Urine Negative (Negative); Potassium 4.4 mmol/L (3.5-5.1); Protein,Urine Negative (Negative); RBC,Urine 2 /hpf (0-5); Sodium 143 mmol/L (137-145); Specific Gravity,Urine 1.005 (1.001-1.035); Squamous Epithelial Cell,Urine 1 /hpf (0-4); Total Bilirubin 0.6 mg/dL (0.2-1.3); Total Protein 6.4 g/dL (6.3-8.2); Urobilinogen,Urine <2.0 mg/dL (<2.0)
--- NOTE | 2018-05-28 11:11 | CT ---
EXAMINATION TYPE: CT angio chest DATE OF EXAM: 05/28/2018 COMPARISON: Chest radiograph of the same date HISTORY: Chest pains, s/p post X1 week CT DLP: 332.9 mGycm. Automated Exposure Control for Dose Reduction was Utilized. CONTRAST: CTA scan of the thorax is performed with IV Contrast, patient injected with 100 mL of Isovue 370, pul monary embolism protocol. MIP Images are created on CT scanner and reviewed. FINDINGS: LUNGS: The lungs are grossly clear, there is no concerning parenchymal mass or nodule identified. T here is no pleural effusion or pneumothorax seen. There are few scattered areas of atelectasis. The t racheobronchial tree is patent. MEDIASTINUM: There is satisfactory enhancement of the pulmonary artery and its branches, there is no CT evidence for pulmonary embolism. There are no greater than 1 cm hilar or mediastinal lymph nodes. The heart is mildly enlarged. No pericardial effusion. Main pulmonary artery is upper limits of norm al measuring 2.9 cm. Ascending thoracic aorta demonstrates motion and pulsation artifact, slightly li miting evaluation. No gross evidence of aneurysm. OTHER: Spleen is prominent in size although does not meet criteria for spinal megaly. Angiographic ph ase of the abdominal viscera limits evaluation. There does appear to be probable mild hepatic steatos is. Bilateral symmetric axillary lymph nodes are seen. Dense breast tissue relates to the state. IMPRESSION: 1. No evidence of pulmonary embolism. Heart is mildly enlarged and main pulmonary artery is upper wilkins its of normal. 2. Few scattered areas of minimal dependent atelectasis. No focal consolidation or pulmonary mass.
[2018-05-28] MEDS ORDERED: LABETALOL 5 MG/ML VIAL MDV IVP STA (11:13)
[2018-05-28] MEDS ORDERED: LABETALOL SYRINGE 5 MG/ML IVP STA (11:15)
[2018-05-28] MEDS ORDERED: NALOXONE 0.4 MG/ML 1 ML VIAL IV PRN (13:05)
[2018-05-28] MEDS ORDERED: KETOROLAC 30 MG/ML 1 ML VIAL IVP STA (13:26)
[2018-05-28 13:30] LABS: Creatine Kinase 48 U/L (30-135)
[2018-05-28 13:44] LABS: Creatine Kinase MB 0.9 ng/mL (0.0-2.4); Troponin I <0.012 ng/mL (0.000-0.034)
[2018-05-28] MEDS ORDERED: IBUPROFEN 600 MG TAB PO PRN (14:41)
[2018-05-28] MEDS ORDERED: LOSARTAN-HCTZ 50-12.5 MG 1 EACH TAB PO SCH (14:45)
[2018-05-28] MEDS ORDERED: LOSARTAN-HCTZ 50-12.5 MG 1 EACH TAB PO ONE (15:00)
--- NOTE | 2018-05-28 17:06 | P.HPOB ---
History of Present Illness H&P Date: 05/28/18 Chief Complaint: Chest pain and hypertension This patient is a pleasant 33-year-old 6 para 3 female status post spontaneous vaginal delivery viable male approximately 6 days ago who called my office on 2 occasions with complaints of chest pain. Patient had also noticed some swelling in her legs. Patient's course was uncomplicated and so was her course. Blood pressures throughout the were normal and throughout the delivery process including were normal. Blood pressures were 120s over 70s . Patient was instructed to come to the emergency department due to her chest pain and evaluation there was negative for pulmonary embolism and DVT however blood pressures were elevated to 160s over 100s. Patient has no history of hypertension in the past. Patient denies headache. Patient's preeclampsia work was negative. Patient also complains of general ill feeling. Review of Systems Constitutional: Reports as per HPI, Reports malaise Cardiovascular: Reports as per HPI, Reports chest pain Past Medical History Past Medical History: GERD/Reflux Additional Past Medical History / Comment(s): Pt is one week . Recent R leg edema, recent "stiff" neck. History of Any Multi-Drug Resistant Organisms: None Reported Past Surgical History: No Surgical Hx Reported Additional Past Surgical History / Comment(s): Colposcopy, wisdom teeth extraction. Past Anesthesia/Blood Transfusion Reactions: No Reported Reaction Smoking Status: Never smoker - Past Family History Mother Additional Family Medical History / Comment(s): Mother has anxiety. Father Family Medical History: COPD Medications and Allergies Home Medications Medication Instructions Recorded Confirmed Type Ibuprofen [Motrin] 600 mg PO Q6HR PRN #40 tab 05/22/18 05/28/18 Rx Amoxicillin 250 mg PO Q8H 05/28/18 05/28/18 History Labetalol [Trandate] 100 mg PO BID #12 tablet 05/28/18 Rx Allergies Allergy/AdvReac Type Severity Reaction Status Date / Time No Known Allergies Allergy Verified 05/28/18 08:12 Exam Vital Signs Temp Pulse Pulse Resp BP BP Pulse Ox 05/28/18 16:00 98.7 F 84 16 166/92 98 05/28/18 13:50 98.7 F 63 16 169/84 97 05/28/18 13:34 98.5 F 64 18 144/99 97 05/28/18 13:09 66 18 145/87 96 05/28/18 12:16 63 145/99 98 05/28/18 11:30 59 L 17 153/95 98 05/28/18 11:00 60 19 160/102 97 05/28/18 10:00 91 18 163/105 99 05/28/18 09:30 59 L 18 169/102 97 05/28/18 09:00 53 L 17 163/104 96 05/28/18 07:51 97.8 F 64 18 162/100 99 Intake and Output 05/28/18 05/28/18 05/28/18 06:59 14:59 22:59 Other: Weight 85.729 kg Results Result Diagrams: 05/28/18 08:55 05/28/18 08:55 Abnormal Lab Results - Last 24 Hours (Table) 05/28/18 05/28/18 05/28/18 Range/Units 08:55 08:55 08:55 D-Dimer 0.81 H (<0.60) mg/L FEU Chloride 110 H (98-107) mmol/L Lactate Dehydrogenase 714 H (313-618) U/L Urine Blood Moderate H (Negative) Ur Leukocyte Esterase Small H (Negative) Assessment and Plan Assessment: This patient is a pleasant 33-year-old 6 para 4 female who is approximately 6 days this developed significant hypertension also complains of chest discomfort. This would be very unusual to be preeclampsia because the patient had normal blood pressures throughout delivery and the immediate period. Patient has no history of hypertension as well. Thromboembolic disease has been ruled out. My plan is to consult Cardiology for evaluation and treatment. I had a long discussion with the patient and her family about the evaluation and treatment process and understands if this is due to the underlying recent that most likely this is a transient condition however needs to be treated with antihypertensives until it resolves. Oftentimes this takes up to 6 weeks. (1) hypertension Current Visit: Yes Status: Acute Code(s): O16.5 - UNSPECIFIED MATERNAL HYPERTENSION, COMP THE PUERPERIUM SNOMED Code(s): 80075306
[2018-05-28] MEDS: NIFEdipine XL 30 MG TAB.ER.24 PO SCH (17:51)
[2018-05-28] MEDS ORDERED: MAGNESIUM SULFATE-D5W PMX 1 GM in DEXTROSE/WATER 1 100ML.BAG IVPB ONE (18:30)
[2018-05-28] MEDS: LABETALOL 200 MG TAB PO SCH (19:48)
[2018-05-28] MEDS ORDERED: LABETALOL 100 MG TAB PO SCH (21:00)
[2018-05-28] MEDS ORDERED: hydrALAZINE HCL 50 MG TAB PO PRN (23:11)
--- NOTE | 2018-05-29 06:59 | P.PN ---
Progress Note - Text Progress Note Date: 05/29/18 Hospital day #2. Patient's blood pressure is improved overnight with medication changes per cardiology. Blood pressures this morning is 140s over 80s. Patient is having some left shoulder pain however this is been completely evaluated and does not appear to be anything concerning. She did ask me about having a headache which she was worried was related to her epidural however she states she gets better when she lays flat which is not consistent with a spinal headache. She does appear very anxious and I think this has a lot to do with. Plan today is to see what her echo shows. Her blood pressures remain good then most likely will be able to be discharged home. She'll need follow-up with me and cardiology short-term.
[2018-05-29] MEDS: HYDROcodone/APAP 5-325MG 1 EACH TAB PO PRN ×3 (07:11→19:20)
--- NOTE | 2018-05-29 07:47 | P.CRDCN ---
History of Present Illness History of present illness: This is Dr. De La Rosa dictating a consult on this patient The patient was interviewed and examined by me IMPRESSION / ASSESSMENT: 33-year-old female Post hypertension with blood pressure greater than 180 mmHg No past history of hypertension Normotensive throughout and during labor No evidence for myocardial injury. Serial ECGs are normal PLAN: Observe on the cardiac floor for another 24 hours on Procardia XL 30 mg by mouth daily as well as labetalol 200 mg twice daily Review 2-D echo and Doppler study and then finalize antihypertensive therapy based upon LV function/risk to the fetus Follow-up with Dr. Plata in 1 week HPI Patient presented with not feeling well within the first week after delivering. She had a normal vaginal delivery. She was complaining of feeling chilly no headaches no blurring of vision no shortness of breath started experiencing discomfort in the mid chest that radiated through to the back. She arrived yesterday morning. She also complained of swelling in both legs. Borderline D dimers and CT of the chest not show any evidence of pulmonary embolus. ROS: No fever chills or rigors, no cough, phlegm or expectoration, no nausea, vomiting or diarrhea, no hematuria, dysuria, no musculoskeletal complaints, no strokes or seizures, no skin lesions. EXAMINATION: Pulse rate in the 50s and 60s, afebrile 97.9F blood pressure this morning is 140/85 mmHg History evening when I was called her blood pressure went up 181/81 mmHg at the time of admission her blood pressure was 169/84 mmHg Breath sounds are normal no rhonchi no crackles Normal heart sounds no rub no gallop no murmurs Abdomen is soft nontender Extremities warm no definite edema REVIEW OF LABS, ECG & MEDICAL DATA normal white count and hemoglobin normal 14.3 d-dimer 0.81 normal electrolytes and normal renal function normal liver function Elevated LDH noted troponin normal BNP 423 Past Medical History Past Medical History: GERD/Reflux Additional Past Medical History / Comment(s): Pt is one week . Recent R leg edema, recent "stiff" neck. History of Any Multi-Drug Resistant Organisms: None Reported Past Surgical History: No Surgical Hx Reported Additional Past Surgical History / Comment(s): Colposcopy, wisdom teeth extraction. Past Anesthesia/Blood Transfusion Reactions: No Reported Reaction Smoking Status: Never smoker - Past Family History Mother Additional Family Medical History / Comment(s): Mother has anxiety. Father Family Medical History: COPD Medications and Allergies Home Medications Medication Instructions Recorded Confirmed Type Ibuprofen [Motrin] 600 mg PO Q6HR PRN #40 tab 05/22/18 05/28/18 Rx Amoxicillin 250 mg PO Q8H 05/28/18 05/28/18 History Labetalol [Trandate] 100 mg PO BID #12 tablet 05/28/18 Rx Allergies Allergy/AdvReac Type Severity Reaction Status Date / Time No Known Allergies Allergy Verified 05/28/18 08:12 Physical Exam Vitals: Vital Signs Temp Pulse Pulse Resp BP BP Pulse Ox 05/29/18 04:00 59 L 16 141/85 100 05/29/18 00:00 97.9 F 56 L 16 157/62 99 05/28/18 22:08 58 L 16 181/81 97 05/28/18 19:50 55 L 16 05/28/18 19:43 55 L 16 159/98 95 05/28/18 17:15 61 181/89 05/28/18 16:00 98.7 F 84 16 166/92 98 05/28/18 13:50 98.7 F 63 16 169/84 97 05/28/18 13:34 98.5 F 64 18 144/99 97 05/28/18 13:09 66 18 145/87 96 05/28/18 12:16 63 145/99 98 05/28/18 11:30 59 L 17 153/95 98 05/28/18 11:00 60 19 160/102 97 05/28/18 10:00 91 18 163/105 99 05/28/18 09:30 59 L 18 169/102 97 05/28/18 09:00 53 L 17 163/104 96 05/28/18 07:51 97.8 F 64 18 162/100 99 Intake and Output 05/28/18 05/29/18 05/29/18 22:59 06:59 14:59 Intake Total 720 480 Balance 720 480 Intake: Oral 720 480 Other: # Voids 2 2 Weight 85.729 kg 82.3 kg Results 05/28/18 08:55 05/28/18 08:55 Cardiac Enzymes 05/28/18 05/28/18 Range/Units 08:55 08:55 AST 23 (14-36) U/L Lactate Dehydrogenase 714 H (313-618) U/L CK-MB (CK-2) 0.9 (0.0-2.4) ng/mL Troponin I <0.012 (0.000-0.034) ng/mL CBC 05/28/18 Range/Units 08:55 WBC 7.9 (3.8-10.6) k/uL RBC 4.20 (3.80-5.40) m/uL Hgb 14.3 (11.4-16.0) gm/dL Hct 41.7 (34.0-46.0) % Plt Count 270 (150-450) k/uL Comprehensive Metabolic Panel 05/28/18 Range/Units 08:55 Sodium 143 (137-145) mmol/L Potassium 4.4 (3.5-5.1) mmol/L Chloride 110 H (98-107) mmol/L Carbon Dioxide 26 (22-30) mmol/L BUN 11 (7-17) mg/dL Creatinine 0.75 (0.52-1.04) mg/dL Glucose 82 (74-99) mg/dL Calcium 9.4 (8.4-10.2) mg/dL AST 23 (14-36) U/L ALT 48 (9-52) U/L Alkaline Phosphatase 95 (38-126) U/L Total Protein 6.4 (6.3-8.2) g/dL Albumin 3.7 (3.5-5.0) g/dL Current Medications Generic Name Dose Route Start Last Admin Trade Name Freq PRN Reason Stop Dose Admin Hydrocodone Bitart/Acetaminophen 1 each 05/29/18 06:59 05/29/18 07:11 [place] 5-325 PO 1 each Q4HR PRN Administration Headache/pain Hydralazine HCl 100 mg 05/28/18 23:11 Apresoline PO ONCE PRN Hypertension Systolic >200 Labetalol HCl 200 mg 05/28/18 21:00 05/28/18 19:48 Trandate PO 200 mg BID FLAKO Administration Naloxone HCl 0.2 mg 05/28/18 13:05 Narcan IV Q2M PRN Opioid Reversal Nifedipine 30 mg 05/28/18 18:00 05/28/18 17:51 Procardia Xl PO 30 mg DAILY FLAKO Administration Intake and Output 05/28/18 05/29/18 05/29/18 22:59 06:59 14:59 Intake Total 720 480 Balance 720 480 Intake: Oral 720 480 Other: # Voids 2 2 Weight 85.729 kg 82.3 kg 05/28/18 08:55 05/28/18 08:55
[2018-05-29] MEDS: LABETALOL 200 MG TAB PO SCH ×2 (08:56→20:44)
[2018-05-29] MEDS: NIFEdipine XL 30 MG TAB.ER.24 PO SCH (08:56)
--- NOTE | 2018-05-29 11:03 | ECHOF ---
Referral Reason:chest pain MEASUREMENTS -------- HEIGHT: 162.6 cm WEIGHT: 85.7 kg BP: 144/99 RVIDd: 3.1 cm (< 3.3) IVSd: 1.0 cm (0.6 - 1.1) LVIDd: 5.0 cm (3.9 - 5.3) LVPWd: 1.0 cm (0.6 - 1.1) IVSs: 1.5 cm LVIDs: 3.3 cm LVPWs: 1.5 cm LAESV Index (A-L): 27.72 ml/m Ao Diam: 2.8 cm (2.0 - 3.7) AV Cusp: 2.1 cm (1.5 - 2.6) LA Diam: 3.6 cm (2.7 - 3.8) EPSS: 0.4 cm MV E Junior: 1.15 m/s MV DecT: 195 ms MV A Junior: 0.71 m/s MV E/A Ratio: 1.61 RAP: 5.00 mmHg RVSP: 41.81 mmHg MV EF SLOPE: 126.25 mm/s (70 - 150) MV EXCURSION: 2.11 cm (> 18.000) FINDINGS -------- Sinus rhythm. This was a technically good study. The left ventricular size is normal. Left ventricular wall thickness is normal. Overall left vent ricular systolic function is normal with, an EF between 55 - 60 %. The right ventricle is normal in size and function. Normal LA size by volume 22+/-6 ml/m2. The right atrium is normal in size. The aortic valve is trileaflet, and appears structurally normal. No aortic stenosis or regurgitation. The mitral valve is normal. There is trace to mild mitral regurgitation. Mild tricuspid regurgitation present. There is mild pulmonary hypertension. The right ventricular systolic pressure, as measured by Doppler, is 41.81mmHg. Trace/mild (physiologic) pulmonic regurgitation. The aortic root size is normal. Normal inferior vena cava with normal inspiratory collapse consistent with estimated right atrial pre ssure of 5 mmHg. There is no pericardial effusion. CONCLUSIONS -------- 1. Sinus rhythm. 2. This was a technically good study. 3. The left ventricular size is normal. 4. Left ventricular wall thickness is normal. 5. Overall left ventricular systolic function is normal with, an EF between 55 - 60 %. 6. Normal LA size by volume 22+/-6 ml/m2. 7. The aortic valve is trileaflet, and appears structurally normal. No aortic stenosis or regurgitati on. 8. There is trace to mild mitral regurgitation. 9. Mild tricuspid regurgitation present. 10. There is mild pulmonary hypertension. 11. The right ventricular systolic pressure, as measured by Doppler, is 41.81mmHg. 12. Trace/mild (physiologic) pulmonic regurgitation. 13. The aortic root size is normal. 14. There is no pericardial effusion. BEZEL CUTTER: Matthew Buchanan RDCS
[2018-05-29 11:05] VITALS: BMI 31.1
[2018-05-30] MEDS: HYDROcodone/APAP 5-325MG 1 EACH TAB PO PRN ×3 (04:35→13:11)
[2018-05-30] MEDS: LABETALOL 200 MG TAB PO SCH ×2 (08:37→21:04)
[2018-05-30 09:21] LABS: Glucose,Whole Blood 86 mg/dL (75-99)
[2018-05-30] MEDS: NIFEdipine XL 30 MG TAB.ER.24 PO SCH (10:48)
[2018-05-30 11:46] VITALS: RESP 18
--- NOTE | 2018-05-30 12:37 | P.PN ---
Subjective Progress Note Date: 05/30/18 is a pleasant 33-year-old female with known history of hypertension, who had a normal , recently delivered a baby 9 days ago. She was admitted to the hospital with symptoms of left-sided neck and shoulder discomfort, she states that the entire night prior to her coming to the hospital she had significant pain, almost felt like she had slept wrong. Symptoms continued to worsen so she came to the emergency room for further evaluation. She was noted on admission here to have a significantly elevated blood pressure and was admitted for further observation. Her blood pressure on admission here was 162/100 with a heart rate in the 60s, 99% on room air. Her EKG showed a normal sinus rhythm with no acute changes. D-dimer came back to be elevated and for this reason a CTA of the chest was performed which did not reveal any evidence of pulmonary embolism. Her blood pressure this morning 142/ 90 with a heart rate in the 60s, 98% on room air. At the time of my examination this morning, patient continues to complain of some left shoulder discomfort, stiffness in her neck with pain at the base of her neck especially with palpation. She also complains of left arm numbness. She does state that the pain is worse when she moves her head a certain direction or lifts her arm in the air. Appears Very musculoskeletal in nature. Objective - Vital Signs Vital signs: Vital Signs Temp 98.3 F 05/30/18 08:10 Pulse 67 05/30/18 08:10 Resp 18 05/30/18 08:10 BP 142/98 05/30/18 08:10 Pulse Ox 98 05/30/18 08:10 Intake & Output 05/29/18 05/30/18 05/30/18 18:59 06:59 18:59 Intake Total 720 480 Balance 720 480 Weight 82.3 kg 83.1 kg Intake: Oral 720 480 Other: Voiding Method Toilet # Voids 4 2 - Exam PHYSICAL EXAMINATION: GENERAL: 33-year-old female in no acute distress at the time of my examination HEENT: Head is atraumatic, normocephalic. Pupils equal, round. Sclera anicteric. Conjunctiva are clear. Mucous membranes of the mouth are moist. Neck is supple. There is no elevated jugular venous pressure. No carotid bruit is heard. HEART EXAMINATION: Heart S1, S2 normal. No murmur or gallop heard. CHEST EXAMINATION: Lungs are clear to auscultation and precussion. No chest wall tenderness is noted on palpation or with deep breathing. ABDOMEN: Soft, nontender. Bowel sounds are heard. No organomegaly noted. EXTREMITIES: 2+ peripheral pulses with no evidence of peripheral edema and no calf tenderness noted. The patient is complaining of some discomfort at the left neck, left shoulder, with numbness in left arm. NEUROLOGIC patient is awake, alert and oriented 3 . . - Labs CBC & Chem 7: 05/28/18 08:55 05/28/18 08:55 Assessment and Plan Plan: Assessment and plan #1 accelerated hypertension, could be exacerbated by pain #2 left shoulder, neck discomfort with associated left arm numbness, appears very musculoskeletal in nature. #3 , healthy delivery 9 days ago Plan Blood pressure this morning is stable. Cardiogram with Doppler study was performed which revealed a normal left ventricular systolic function. From cardiology's perspective we will recommend to continue 200 mg by mouth twice a day of labetalol along with Procardia XL 30 mg daily. She may be able to be discharged home once cleared by her primary and we will make her a follow-up appointment to see Dr. De La Rosa in the office post discharge. DNP note has been reviewed, I agree with a documented findings and plan of care. Patient was seen and examined.
[2018-05-30] MEDS ORDERED: LORazepam 2 MG/ML INJ IV STA (13:26)
--- NOTE | 2018-05-30 13:29 | P.PAINCN ---
History of Present Illness - Reason for Consult Consult date: 05/30/18 - History of Present Illness This is 33 years old female, who was admitted to [facility] because of chest pain, patient was evaluated by cardiology and found that the patient had hypertension with a blood pressure more than 180, and currently patient on medication for hypertension, patient complaining of severe neck pain with radiation to the left arm associated with numbness and tingling sensation, the pain increases with any neck movement, and she had some headache , patient reported that her symptoms improved with the sitting and standing and is aggravated with lying supine, patient denies any fever, she denies any motor or sensory deficit, patient had vaginal delivery on May 21, and she had the epidural catheter for labor, patient did very well after the delivery until May 27 when she started her new symptoms of neck pain and left upper extremity numbness. Past Medical History Past Medical History: GERD/Reflux Additional Past Medical History / Comment(s): Pt is one week . Recent R leg edema, recent "stiff" neck. History of Any Multi-Drug Resistant Organisms: None Reported Past Surgical History: No Surgical Hx Reported Additional Past Surgical History / Comment(s): Colposcopy, wisdom teeth extraction. Past Anesthesia/Blood Transfusion Reactions: No Reported Reaction Smoking Status: Never smoker - Past Family History Mother Additional Family Medical History / Comment(s): Mother has anxiety. Father Family Medical History: COPD Medications and Allergies Home Medications Medication Instructions Recorded Confirmed Type Ibuprofen [Motrin] 600 mg PO Q6HR PRN #40 tab 05/22/18 05/28/18 Rx Amoxicillin 250 mg PO Q8H 05/28/18 05/28/18 History Labetalol [Trandate] 100 mg PO BID #12 tablet 05/28/18 Rx Allergies Allergy/AdvReac Type Severity Reaction Status Date / Time No Known Allergies Allergy Verified 05/28/18 08:12 Physical Exam Vitals: Vital Signs Temp Pulse Resp BP Pulse Ox 05/30/18 08:10 98.3 F 67 18 142/98 98 05/30/18 04:00 97.4 F L 67 18 140/92 98 05/29/18 22:56 97.7 F 80 16 151/97 96 05/29/18 20:00 97.7 F 66 17 142/91 96 05/29/18 15:28 97.9 F 68 18 134/92 96 Intake and Output 05/29/18 05/30/18 05/30/18 22:59 06:59 14:59 Intake Total 240 480 Balance 240 480 Intake: Oral 240 480 Other: Voiding Method Toilet Toilet # Voids 2 2 Weight 83.1 kg Social history : not smoker , NO ETOH , NO Illegal drugs use . Family history : positive for mother had an anxiety and father COPD Review of Systems : 1- Constitutional : no chills , no fever , no night sweats , 2- Ears : no ear discharge , no change in hearing 3-Nose, Mouth ,Throat ; no bleeding gums, no sore throat , no epistaxis , 4-Cardiovascular : Denies chest pain, , no orthopnea , no palpitation 5-Respiratory : Denies cough , no dyspnea , no hemoptysis 6-Gastrointestinal :, no change in bowel habits , no coffee- ground emesis . 7-Genitourinary : No hematuria , no discharge , no incontinence, 8-Musculoskeletal : No gait dysfunction , report low back pain , 9- Neurological : no ataxia , no tremor , no sezure , 10-Psychatric , no suicidal ideation no hallucination 11- Endocrine : no cold intolerence , no polyuria , no polydypsia , 12-Hematologic : no easy bleeding , no easy brusing , 13-Allergic / immunology : no angioedema , no wheezing ,no allergic rhinitis 14-Integumentary : no brttle nails , no change hair / nails , no foot/leg ulcers . Physical Examinations : 1-Constitutional : Cooperative , not in acute distress . 2-HEENT : nech ; supple , no Lymphadenopathy , no Thyromegaly , :eyes , no icterus, no photophobia . ENT : , normal oropharynx , no Thrush 3- Respiratory : Chest clear to auscultations Bilaterally , no wheezing . 4- Cardiovascular : regular rate and rhythem , S1 , S2 , no S3 , no S4. 5- Gastrointestinal: abdomen soft no tenderness , no organomegally . 6- Genitourinary : Defferred . 7-Integumentary : No cellulitis , no ulcers , normal skin turgor , no cyanotic . 8- neurologic : Cranial nerve II to XII intact , no focal neurological deffecit 9-psychatric : alert , oriented X 3 , appropriate affect , intact judgment and insight . 10-Lymphatic : no Lymphadenopathy. 11- musculoskeltal: normal gait Cervical Spine motor stregnth in the deltoid and biceps, normal right side , normal Left side motor stregnth biceps and the wrist extensors normal right side ,normal left side . motor stregnth in the triceps muscle . normal Right side , normal Left side deep tendon reflexes normal at the biceps , normal at Brachioradialis , normal at triceps. positive cervical facet loading test . Multiple trigger point identified in the bilateral cervical paravertebral muscles (more than the right ) Rhomboid and trapezius muscles bilaterally Lumber spine moter stegnth lower extremities ,thigh and legs 5/5 Right side , 5/5 Left side Results CBC & Chem 7: 05/28/18 08:55 05/28/18 08:55 Assessment and Plan Plan: Assessment and plan= 33 years old female with the acute onset of severe neck pain with radiation to the upper extremity and left side more than the right side Patient has symptoms of neck pain and headache started 4 days ago, which is 5 days after she had lumbar epidural catheter placed for vaginal delivery , patient reported that her symptoms headache aggravated when she is lying supine , and improved with sitting position Patient symptoms does not fit the criteria for post dural puncture headache, and the physical exam support the patient had, myofascial pain versus cervical radiculopathy, patient will be good candidate to have trigger point injections in the cervical area, And we will order MRI for the cervical spine to evaluate if there is any herniated disc causing her symptoms, we'll evaluate patient response, to the cervical trigger point injections ,and will determine what is the next treatment plan Time with Patient: Greater than 30 PQRS Measure Charge Sheet PQRS Narrative: Smoking Status Never smoker Blood Pressure [Right Arm] 142/98 Blood Pressure 144/99 Pain Intensity [Head] 0 Pain Intensity [None] 0 Pain Intensity 8 Pain Scale Used Numeric (1 - 10) Scale Used Numeric (1 - 10) Home Medications: Ambulatory Orders Ibuprofen [Motrin] 600 mg PO Q6HR PRN #40 tab 05/22/18 Amoxicillin 250 mg PO Q8H 05/28/18 Labetalol [Trandate] 100 mg PO BID #12 tablet 05/28/18
[2018-05-30] MEDS: ALPRAZolam 0.25 MG TAB PO PRN (13:34)
[2018-05-30] MEDS ORDERED: cloNIDine HCL 0.1 MG TAB PO PRN (14:20)
[2018-05-30] MEDS ORDERED: Acetaminophen-Codeine 300-30mg TAB PO PRN (14:20)
[2018-05-30 15:19] LABS: INR 0.9 (<1.2); Prothrombin Time 10.1 sec (9.0-12.0)
[2018-05-30 15:21] LABS: ALT 43 U/L (9-52); AST 24 U/L (14-36); Albumin 3.9 g/dL (3.5-5.0); Alkaline Phosphatase 83 U/L (38-126); Anion Gap 7 mmol/L; Blood Urea Nitrogen 15 mg/dL (7-17); C Reactive Protein 9.1 mg/L (<10.0); Calcium 9.3 mg/dL (8.4-10.2); Carbon Dioxide 26 mmol/L (22-30); Chloride 106 mmol/L (98-107); Creatine Kinase 39 U/L (30-135); Glucose 131 mg/dL (74-99); Potassium 4.3 mmol/L (3.5-5.1); Sodium 139 mmol/L (137-145); Total Bilirubin 0.7 mg/dL (0.2-1.3); Total Protein 6.6 g/dL (6.3-8.2)
[2018-05-30 15:55] LABS: Basophils % (A) 1 %; Eosinophils # (A) 0.3 k/uL (0-0.7); Eosinophils % (A) 3 %; HGB 15.3 gm/dL (11.4-16.0); Lymphocytes # (A) 1.9 k/uL (1.0-4.8); Lymphocytes % (A) 22 %; MCH 34.1 pg (25.0-35.0); MCHC 33.3 g/dL (31.0-37.0); MCV 102.4 fL (80.0-100.0); Macrocytosis Slight; Mean Platelet Volume 6.6; Monocytes # (A) 0.6 k/uL (0-1.0); Monocytes % (A) 7 %; Neutrophils # (A) 5.6 k/uL (1.3-7.7); Neutrophils % (A) 65 %; Platelet Count 281 k/uL (150-450); RBC 4.49 m/uL (3.80-5.40); WBC 8.6 k/uL (3.8-10.6)
[2018-05-30] MEDS ORDERED: ROPIVACAINE 5 MG/ML 30 ML VIAL ONE (16:00)
[2018-05-30] MEDS ORDERED: TRIAMCINOLONE ACETONIDE 40 MG/ML 1 ML VIAL ONE (16:00)
--- NOTE | 2018-05-30 16:06 | MR ---
EXAMINATION TYPE: MR brain wo con DATE OF EXAM: 05/30/2018 COMPARISON: HISTORY: Neck/arm pain, numbness, chest pain Standard multiplanar, multisequence MRI departmental protocol Multiplanar, multisequence images of the brain were acquired. Diffusion weighted imaging was performe d. FINDINGS: There is no restricted diffusion. No hemorrhage or hydrocephalus. Corpus callosum, pituitar y, cervical medullary junction, cerebellopontine angles are normal. There are normal vascular flow vo ids. The orbits are symmetric. No inflammatory change in the mastoid air cells or paranasal sinuses. IMPRESSION: Normal brain MRI
--- NOTE | 2018-05-30 16:51 | P.PCN ---
Date of Procedure: 05/30/18 Procedure(s) Performed: Procedure= left side trigger point injection left trapezius muscle ,and left rhomboid muscle ( 2 trigger points injected ). Preoperative diagnoses=1- myofascial pain syndrome cervical area. 2-cervical radiculopathy. Postoperative diagnoses= same as pre op diagnoses. Condition= stable. Complications=none. Indication and description of the procedure= this is 33 years old female with the acute onset of severe left side neck pain, examination was positive for multiple trigger points in the left-sided cervical area produces and she will be good candidate to have trigger point injections, risks and benefits of the procedure discussed with ,the patient and she agrees with proceeding, patient in the recovery room area, placed in sitting position the neck area prepped with chlorhexidine 3, and under strict technique the trigger points which was identified in the left rhomboid muscle 2 trigger points ,and 1 point in the trapezius muscles on the left side, each of the trigger point injected with Ropivacaine 0.5% 3 mL, total of 9 mL mixed with the Depo-Medrol 40 mg, 3 ML of the mixture was injected at each trigger point after negative aspiration patient tolerated the procedure well without any concussions, if patient continued to have pain after this procedure then we will consider doing cervical epidural steroid injection which can be done as an outpatient
[2018-05-30 16:52] LABS: Erythrocyte Sedimentation Rate 8 mm/hr (0-20)
--- NOTE | 2018-05-30 18:36 | P.PN ---
Progress Note - Text Progress Note Date: 05/30/[address] Dilip Sosa Sofiya is seen and evaluated both in the afternoon and in the evening on 2018. Her pain is predominantly in her neck region on the left-hand side she did receive a steroid injection from anesthesia for this earlier today but still remains having the pain and having some headache. Is not diminished dramatically. Her blood pressures have begun to improve through the day. Interim medicine is now consult it for further evaluation and treatment of her blood pressure issues. Cardiology did feel like there was no cartilage labs or other cardiac issues with her blood pressure so we are trying to determine if her blood pressure elevations are simply a response to her pain for which she is in significant amount of pain or if there is some other underlying issue. MRI done today was normal and at this time I cannot find any other source for her elevations in blood pressure. Preeclampsia does not seem like the most likely issue and without any other cardiac source is difficult to say that this isn't just simply a response to the pain she is having. We'll have to allow the medication to work and hopefully see some response with her neck pain. I did discuss with internal medicine treatment planning and for now will try and monitor closely and make sure that there is no other issues with her blood pressures that may require further management. All other questions were answered for her at this time and will continue very cautious care.
[2018-05-30] MEDS ORDERED: TEMAZEPAM 15 MG CAP PO PRN (20:00)
[2018-05-30] MEDS: HEPARIN SODIUM,PORCINE 5,000 UNIT/ML 1 ML VIAL SQ SCH (21:07)
--- NOTE | 2018-05-31 00:23 | CONS ---
CONSULTATION DATE OF SERVICE: 05/30/2018. REASON FOR CONSULTATION: Advice regarding hypertension and as well as neck pain requested by APPLICATION DEVELOPMENT CONSULTANT. HISTORY OF PRESENT ILLNESS: This 33-year-old woman with a past medical history of GERD, history of colposcopy, wisdom teeth extractions, anxiety, depression being followed by Dr. Mejia in the outpatient setting had a delivery on May 21 which is her fourth child. The patient did not have any complications. The patient had an epidural injection at that time and the patient went home. Subsequently, at home, the patient had some fever, chills, and the patient also noted to have some right leg swelling and the patient was thought to have some mastitis at that point and Amoxicillin was initiated as an outpatient , but the patient came back to the ER on May 27 with complaints of headache, neck pain, and blood pressure was elevated at 160/100 and the patient was admitted for further evaluation and treatment. Patient also complaining of left arm numbness also. There is no history of any fever, rigor, chills at this time. No history of any chest pain, palpitations, hematochezia or melena. After admission, the D-dimer was found to be 0.81, but CT of the chest negative for pulmonary embolism. LDH elevated up to 714 and glucose 131. White count is normal. MCV is 102.4. There is no history of fever, rigors or chills. PAST MEDICAL HISTORY: History of recent delivery as mentioned, history of GERD, history of anxiety, depression. MEDICATIONS: Prior to admission include: 1. Ibuprofen 60 mg q.6h. 2. Oxygen 250 mg q8. 3. Trandate 100 mg p.o. b.i.d. ALLERGIES: None. FAMILY HISTORY: History of COPD, anxiety in the family. SOCIAL HISTORY: No history of smoking. No history of alcohol intake. REVIEW OF SYSTEMS: ENT: No diminished vision. No diminished hearing. CARDIOVASCULAR SYSTEM: As mentioned earlier. RESPIRATORY: As mentioned earlier. GI: As mentioned earlier. GENITOURINARY: No dysuria., NERVOUS SYSTEMS: No numbness, weakness. ALLERGY/IMMUNOLOGY: No history of asthma or hayfever. MUSCULOSKELETAL: As mentioned earlier. HEMATOLOGY/ONCOLOGY: No history of anemia. ENDOCRINE: No history of diabetes or hypothyroidism. CONSTITUTIONAL: As mentioned earlier. Dermatology: Negative. Rheumatology: Negative. Psychiatry: As mentioned earlier. PHYSICAL EXAM: Patient is alert, oriented x3. The pulse is 67, blood pressure is 142/98, respiration 18, temperature 98.2, pulse ox 98% on room air. HEENT: Conjunctivae normal. Oral mucosa moist. NECK is no jugular venous distention. No carotid bruit. No lymph node enlargement. CARDIOVASCULAR: S1, S2. Respiratory: Breath sounds diminished in the bases. Scattered rhonchi and crackles. ABDOMEN: Soft, nontender. No mass, palpable. Legs: No edema. No swelling. Central nervous system: Higher functions as mentioned earlier. Moves all four extremities. No focal deficits. SKIN: No ulcer, rash or bleeding. Examination of the neck: Tenderness and stiffness present. No neck stiffness per se, stiffness of the muscles present. LABS: WBC is 8.2, hemoglobin 15.3, 8. The glucose 131, sodium 130, potassium 4.2, creatinine is normal. LDH noted. LFTs are normal. UA noted. ASSESSMENT: 1. Neck pain, hypertension for evaluation. 2. Possible cervical myofasciitis for musculoskeletal pain post lumbar puncture headache unlikely per anesthesia. 3. Hypertension. 4. History of recent normal delivery. 5. Increased MCV. 6. Rule out urinary tract infection. 7. Gastroesophageal reflux disease. 8. History of anxiety, depression. 9. FULL CODE. RECOMMENDATIONS AND DISCUSSION: In this 33-year-old woman who presented with multiple complex medical issues. We will monitor the patient closely. Continue the current medications, management and symptomatic treatment. Otherwise at this time I also recommend an MRI which has returned as normal. Monitor blood pressure closely. Patient is on Trandate 200 mg p.o. b.i.d., clonidine p.r.n. may be used. Otherwise, DVT prophylaxis. Prognosis guarded because of multiple complex medical issues. Further recommendations to follow. A copy of dictation being forwarded to Dr. Mejia, who is the primary physician. MMODL / IJN: [id number] / [facility]
[2018-05-31] MEDS: KETOROLAC 30 MG/ML 1 ML VIAL IVP PRN ×2 (05:21→16:34)
[2018-05-31 06:42] LABS: Basophils # (A) 0.1 k/uL (0-0.2); Basophils % (A) 1 %; Eosinophils # (A) 0.2 k/uL (0-0.7); Eosinophils % (A) 3 %; HCT 46.1 % (34.0-46.0); HGB 15.2 gm/dL (11.4-16.0); Lymphocytes # (A) 2.3 k/uL (1.0-4.8); Lymphocytes % (A) 32 %; MCH 33.8 pg (25.0-35.0); MCV 102.7 fL (80.0-100.0); Macrocytosis Slight; Mean Platelet Volume 6.5; Monocytes # (A) 0.5 k/uL (0-1.0); Monocytes % (A) 6 %; Neutrophils % (A) 56 %; Platelet Count 287 k/uL (150-450); RBC 4.49 m/uL (3.80-5.40); RDW 13.2 % (11.5-15.5); WBC 7.1 k/uL (3.8-10.6)
[2018-05-31 06:49] LABS: Anion Gap 8 mmol/L; Blood Urea Nitrogen 13 mg/dL (7-17); Calcium 9.6 mg/dL (8.4-10.2); Carbon Dioxide 25 mmol/L (22-30); Chloride 106 mmol/L (98-107); Glucose 86 mg/dL (74-99); Potassium 4.2 mmol/L (3.5-5.1); Sodium 139 mmol/L (137-145)
[2018-05-31] MEDS ORDERED: PANTOPRAZOLE 40 MG TABLET PO SCH (07:30)
--- NOTE | 2018-05-31 08:43 | US ---
EXAMINATION TYPE: US venous doppler duplex LE BI DATE OF EXAM: 05/31/2018 7:44 AM COMPARISON: NONE CLINICAL HISTORY: dvt. Head and neck pain, patient states no leg pain or swelling, no history of DVT, exam done portable SIDE PERFORMED: Bilateral TECHNIQUE: The lower extremity deep venous system is examined utilizing real time linear array sonog emil with graded compression, doppler sonography and color-flow sonography. VESSELS IMAGED: External Iliac Vein (EIV) Common Femoral Vein Deep Femoral Vein Greater Saphenous Vein * Femoral Vein Popliteal Vein Small Saphenous Vein * Proximal Calf Veins (* superficial vessels) Right Leg: Appears negative for DVT Left Leg: Appears negative for DVT IMPRESSION: 1. No diagnostic evidence of DVT
--- NOTE | 2018-05-31 08:43 | P.PN ---
Progress Note - Text Progress Note Date: 05/31/18 Sofiya is seen and evaluated this morning. Overall I think she does look better than she did yesterday. However she continues to have left-sided neck pain that extends up into her occipital region of her head. The neck pain is predominantly along the sternocleidomastoid into the trapezius as well as along the subcu clavicular region. She did receive injections from anesthesia yesterday which had minimal improvement. In movement of her neck, she is able to look slightly easier to the left side. Turning her head to the right side is significantly more painful. She received Toradol this morning as well which is helped somewhat. At this time if there is no other major findings or concerns I would think that the next step may be either physical therapy with may be therapeutic ultrasound or a short course of a muscle relaxant like Flexeril or Soma trialed in the hospital slit we can see how she does. With certainly defer to medicine for these medications as I am not certain that there is not something else they're concerned about that may need to be addressed before this type of treatment regimen. Thus for the other studies have essentially returned normal. She was concerned this morning about the fact that she was group B strep positive on inserted about the possibility of meningitis. I did reassure her that this was not the case and it predominantly the group B strep is an infection that would affect the baby and that is why she received prophylaxis during labor. All the questions were answered for her this morning and I did sit with her for at least 20 minutes explaining what the treatment plans potentially could be. The goal obviously for her is to try and get her home and be with the baby but we need to rule out all possible uncommon sources for blood pressure elevations before discharge. At this time cardiology does not feel like there is a primary cardiac issue i.e. cardiomyopathy. In talking to her even further, her blood pressure seems to be increasing dramatically only when she is in significant pain. The difficulty obviously in this situation is defining whether the pain is causing the blood pressure elevation or the blood pressure elevation is causing the pain, however she believes the pain is the trigger to forcing her blood pressures up. The majority of her blood pressures since her 1 pad blood pressure yesterday have been at least stable in the 140/80 range.
[2018-05-31] MEDS: LABETALOL 200 MG TAB PO SCH (09:15)
[2018-05-31] MEDS: NIFEdipine XL 30 MG TAB.ER.24 PO SCH (09:15)
[2018-05-31] MEDS: HEPARIN SODIUM,PORCINE 5,000 UNIT/ML 1 ML VIAL SQ SCH (09:16)
[2018-05-31] MEDS: ALPRAZolam 0.25 MG TAB PO PRN (12:12)
--- NOTE | 2018-05-31 12:26 | P.PN ---
Subjective Progress Note Date: 05/31/18 is a pleasant 33-year-old female with known history of hypertension, who had a normal , recently delivered a baby 9 days ago. She was admitted to the hospital with symptoms of left-sided neck and shoulder discomfort, she states that the entire night prior to her coming to the hospital she had significant pain, almost felt like she had slept wrong. Symptoms continued to worsen so she came to the emergency room for further evaluation. She was noted on admission here to have a significantly elevated blood pressure and was admitted for further observation. Her blood pressure on admission here was 162/100 with a heart rate in the 60s, 99% on room air. Her EKG showed a normal sinus rhythm with no acute changes. D-dimer came back to be elevated and for this reason a CTA of the chest was performed which did not reveal any evidence of pulmonary embolism. Her blood pressure this morning 142/ 90 with a heart rate in the 60s, 98% on room air. At the time of my examination this morning, patient continues to complain of some left shoulder discomfort, stiffness in her neck with pain at the base of her neck especially with palpation. She also complains of left arm numbness. She does state that the pain is worse when she moves her head a certain direction or lifts her arm in the air. Appears Very musculoskeletal in nature. 05/31/2018 Patient was seen and examined this morning, she's been up ambulating in the hallway without any difficulty. Overall much more comfortable today. She did have a venous duplex study performed which came back negative for DVT. She also underwent MRI which was negative. Blood pressure today 130/76. Objective - Vital Signs Vital signs: Vital Signs Temp 98.3 F 05/31/18 08:55 Pulse 72 05/31/18 08:55 Resp 18 05/31/18 08:55 BP 130/89 05/31/18 08:55 Pulse Ox 97 05/31/18 08:55 Intake & Output 05/30/18 05/31/18 05/31/18 18:59 06:59 18:59 Intake Total 924 240 Balance 924 240 Weight 82.1 kg Intake: Oral 924 240 Other: Voiding Method Toilet # Voids 2 1 - Exam PHYSICAL EXAMINATION: GENERAL: 33-year-old female in no acute distress at the time of my examination HEENT: Head is atraumatic, normocephalic. Pupils equal, round. Sclera anicteric. Conjunctiva are clear. Mucous membranes of the mouth are moist. Neck is supple. There is no elevated jugular venous pressure. No carotid bruit is heard. HEART EXAMINATION: Heart S1, S2 normal. No murmur or gallop heard. CHEST EXAMINATION: Lungs are clear to auscultation and precussion. No chest wall tenderness is noted on palpation or with deep breathing. ABDOMEN: Soft, nontender. Bowel sounds are heard. No organomegaly noted. EXTREMITIES: 2+ peripheral pulses with no evidence of peripheral edema and no calf tenderness noted. NEUROLOGIC patient is awake, alert and oriented 3 . . - Labs CBC & Chem 7: 05/31/18 05:54 05/31/18 05:54 Labs: Abnormal Lab Results - Last 24 Hours (Table) 05/30/18 05/30/18 05/31/18 Range/Units 14:57 14:57 05:54 Hct 46.1 H (34.0-46.0) % MCV 102.4 H 102.7 H (80.0-100.0) fL Glucose 131 H (74-99) mg/dL Assessment and Plan Plan: Assessment and plan #1 accelerated hypertension, could be exacerbated by pain #2 left shoulder, neck discomfort with associated left arm numbness, appears very musculoskeletal in nature. #3 , healthy delivery 9 days ago Plan Blood pressure this morning is stable. Echocardiogram with Doppler study was performed which revealed a normal left ventricular systolic function. From cardiology's perspective we will recommend to continue 200 mg by mouth twice a day of labetalol along with Procardia XL 30 mg daily. She may be able to be discharged home once cleared by her primary and we will make her a follow-up appointment to see Dr. De La Rosa in the office post discharge. DNP note has been reviewed, I agree with a documented findings and plan of care. Patient was seen and examined.
[2018-05-31 15:34] VITALS: BP 127/66; PULSE 57; TEMP 97.8
--- NOTE | 2018-06-01 04:14 | PN ---
PROGRESS NOTE DATE OF SERVICE: 05/31/2017 This 33-year-old woman was admitted with hypertensive accelerated, neck pain is being closely monitored. The patient improved significantly. Patient symptomatically treated. Patient is on labetalol also. The patient also had MRI which showed no acute abnormality and the patient also had trigger point injections from Dr. Tsai which has improved the pain significantly. No chest pain. No palpitations. No fever. No shortness of breath. EXAM: Alert and oriented x3. Pulse 72, blood pressure 130/89, respiration 18, temperature 98.2, pulse ox 97% on room air. HEENT: Conjunctivae normal. NECK: No jugular venous distention. Cardiac: S1, S2. Respirations: Breath sounds diminished in the bases. No rhonchi. No crackles. Abdomen is soft, nontender. Legs are no edema. No swelling. CENTRAL NERVOUS SYSTEM: No focal deficits. Neck is minimal tenderness on the left side. LABS: MCV 102.7. Other labs are noted. ASSESSMENT: 1. Neck pain possibly musculoskeletal rule out cervical myofasciitis. 2. Hypertension. 3. History of recent lumbar puncture and also headache unlikely per anesthesia. 4. History of recent normal delivery. 5. Increased MCV. 6. Gastroesophageal reflux disease. 7. History of anxiety, depression. 8. FULL CODE. RECOMMENDATIONS AND DISCUSSION: Recommend to continue current medications, management. Symptomatic treatment. 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 I would recommend labetalol and symptomatic treatment of pain. Follow closely with primary physician Dr. Mejia. Further recommendations to follow. MMODL / IJN: [id number] /
== END 2018-05-31 18:14 | disposition home or self-care (01) | DRG 776 ==
LOC: EC 07:49 → 3SCARD 13:05
PROVIDERS: ADMIT Obstetrics & Gynecology; ATTEND Obstetrics & Gynecology
PROC: 3E023BZ Introduction of Anesthetic Agent into Muscle, Percutaneous Approach (ICD-10-PCS; 2018-05-30)
PROC: 3E0233Z Introduction of Anti-inflammatory into Muscle, Percutaneous Approach (ICD-10-PCS; principal; 2018-05-30 14:00)
DX: O16.5 Unspecified maternal hypertension, complicating the puerperium (principal); F41.9 Anxiety disorder, unspecified; K21.9 Gastro-esophageal reflux disease without esophagitis; N61.0 Mastitis without abscess; M79.18 Myalgia, other site; M54.12 Radiculopathy, cervical region; R60.0 Localized edema; Z22.330 Carrier of Group B streptococcus; Z82.5 Family history of asthma and other chronic lower respiratory diseases; Z82.0 Family history of epilepsy and other diseases of the nervous system
CPT/HCPCS: 20553; 36415; 70551; 71046; 71275; 80048; 80053; 81001; 82550; 82553; 83615; 83735; 83880; 84484; 85025; 85379; 85610; 85652; 86140; 93005; 93306; 93970; 96365; 96366; 96375; 99285

== ENCOUNTER → 2018-06-03 | Outpatient (CLI) | payer BC ==
[2018-06-03 13:09] LABS: Basophils % (A) 1 %; Eosinophils # (A) 0.3 k/uL (0-0.7); Eosinophils % (A) 3 %; HCT 47.8 % (34.0-46.0); HGB 15.8 gm/dL (11.4-16.0); Lymphocytes % (A) 22 %; MCH 33.5 pg (25.0-35.0); MCV 101.7 fL (80.0-100.0); Macrocytosis Slight; Mean Platelet Volume 6.7; Monocytes # (A) 0.4 k/uL (0-1.0); Monocytes % (A) 4 %; Neutrophils # (A) 6.2 k/uL (1.3-7.7); Neutrophils % (A) 68 %; Platelet Count 328 k/uL (150-450); RDW 12.8 % (11.5-15.5); WBC 9.1 k/uL (3.8-10.6)
[2018-06-03 18:50] LABS: Anion Gap 10.2 mmol/L (4.00-12.00); Calcium 9.6 mg/dL (8.7-10.3); Carbon Dioxide 27.8 mmol/L (21.6-31.8); Potassium 4.4 mmol/L (3.5-5.5)
== END | disposition home or self-care (01) ==
LOC: LABWHC1 12:13
PROVIDERS: ATTEND Nurse Practitioner
DX: I10 Essential (primary) hypertension (principal)
CPT/HCPCS: 36415; 80048; 85025; 99211

== ENCOUNTER → 2018-06-03 | Outpatient (CLI) | payer BC ==
[2018-06-03 15:20] VITALS: BP 134/87; PULSE 66; RESP 16
--- NOTE | 2018-06-04 07:07 | P.PAINPG ---
Subjective Progress Note Date: 06/03/18 This is a follow-up visit for this 33 years old female with acute onset of severe neck pain with radiation to the upper extremity mainly to the left shoulder on the left upper extremity, patient's wound last week as an inpatient , and she was diagnosed with myofascial pain syndrome cervical, and cervical radiculopathy, last week I did trigger point injection in the cervical area patient reported that she had some improvement of her pain, the pain associated with numbness and tingling sensation in the left upper extremity, denies any fever or night sweats she denies any change in bowel movements or urination, and she denies any motor or sensory deficit Objective - Vital Signs Vital signs: Vital Signs Temp Pulse 66 06/03/18 15:09 Resp 16 06/03/18 15:09 BP 134/87 06/03/18 15:09 Pulse Ox 98 06/03/18 15:09 Intake & Output 06/03/18 06/03/18 06/04/18 06:59 18:59 06:59 Weight 79.379 kg - Exam Physical Examinations : 1-Constitutiona : Cooperative , not in acute distress . 2-HEENT : nech ; supple , no Lymphadenopathy , normal thyroid size . eyes : no ptosis , no icterus, no photophobia . ENT : normal of hearing , normal oropharynx , no Thrush . 3- Respiratory : Chest clear to auscultations Bilaterally , no wheezing , no Rhonchi . 4- Cardiovascular : regular rate and rhythem , S1 , S2 , no S3 , no S4. 5- Gastrointestinal : abdomen soft no tenderness , bowel sounds , no organomegally . 6- Genitourinary : Defferred . 7- neurologic : Cranial nerve II to XII intact , no focal neurological deffecit . 8-psychatric : alert , oriented X 3 , appropriate affect , intact judgment and insight . 9-Lymphatic : no Lymphadenopathy . 10- musculoskeltal : Cervical Spine motor stregnth in the deltoid and biceps, normal right side , normal Left side motor stregnth biceps and the wrist extensors normal right side ,normal left side . motor stregnth in the triceps muscle . normal Right side , normal Left side deep tendon reflexes normal at the biceps , normal at Brachioradialis , normal at triceps. positive cervical facet loading test Trigger point in the left-sided cervical paravertebral muscles. Lumber spine moter stegnth lower extremities , thigh and legs 5/5 Right side , 5/5 Left side Assessment and Plan Plan: Assessment and plan= Cervical radiculopathy, myofascial pain syndrome and cervical area. Patient continued to have severe neck pain with radiation to the left upper extremity associated with numbness and tingling sensation. I will MRI of the cervical spine without contrast. Patient using ibuprofen every 8 hours and she continued to have severe neck pain, she could benefit from [place] 5/325, She signed the opioid contract, risks and benefits of opioid discussed with the patient, and she agreed and she understood the risk MAPS Reviwed and it was apropriate . Medication managements= patient will be given prescription for [place] 5/325 every 8 hours dispense 90 was given to the patient and patient will follow up in the pain clinic in 2-3 weeks to review the MRI results , Time with Patient: Less than 30 PQRS Measure Charge Sheet Measure #130: Documentation of Current Meds in Medical Chart: Patient's medications documented in chart Measure #226: Tobacco Use: Screen & Cessation Intervention: Pt not a tobacco user Measure #111: Pneumonia Vaccination: Pneumococcal vaccine NOT administered or previously given Measure #47: Advance Care Plan: Advance care planning discussed & documented, pt chose/unable to give Measure #412: Opioid Treatment Agreement: Documented signed opioid trtmnt agreemnt min once during opioid trtmnt Measure #408: Opioid Therapy Follow-up Evaluation: Patient had f/u eval minimum every 3 months during opioid therapy Measure #317: Preventitive Care & Scrn High Bld Press & F/U: Normal blood pressure, f/u not required Measure #128: Body Mass Index (BMI) Screening & Follow-up: BMI documented ABOVE normal parameters - f/u documented Measure #131: Pain Assessment & Follow-up: Pain positive & plan documented, Follow-up scheduled Measure #431: Unhealthy Alcohol Use Preventative Care & Scrn: Patient not identified as an unhealthy alcohol user PQRS Narrative: Smoking Status Never smoker Do You Want the Pneumonia No Vaccine AT THIS TIME? Blood Pressure 134/87 Pain Intensity [Left Posterior 6 Neck] Scale Used Numeric (1 - 10) Hx Alcohol Use (MH) No Home Medications: Ambulatory Orders Ibuprofen [Motrin] 600 mg PO Q6HR PRN #40 tab 05/22/18 ALPRAZolam [Xanax] 0.25 mg PO TID PRN #9 tab 05/31/18 HYDROcodone/APAP 5-325MG [[place] 5-325] 1 tab PO Q6HR PRN 3 Days #12 tab Labetalol [Trandate] 200 mg PO BID #60 tab 05/31/18 Pantoprazole [Protonix] 40 mg PO AC-BRKFST #30 tablet. 05/31/18 Controlled Substance Measures - Controlled Substance Measures Is patient prescribed a controlled substance at discharge?: Yes When asked, does pt state using other controlled substances?: No If prescribed controlled substance>3 days was MAPS reviewed?: Yes If Rx opioid, was Start Talking consent form obtained?: Yes If opioid is for acute pain is fill amount 7 days or less?: No Was information provided regarding opioid addiction?: Yes
== END | disposition home or self-care (01) ==
LOC: PNWHC3 13:51
PROVIDERS: ATTEND Specialist
DX: M54.12 Radiculopathy, cervical region (principal); M79.18 Myalgia, other site; Z79.891 Long term (current) use of opiate analgesic; Z79.1 Long term (current) use of non-steroidal anti-inflammatories (NSAID); Z79.899 Other long term (current) drug therapy
CPT/HCPCS: 99211

== ENCOUNTER 2018-09-10 05:33 | Day surgery (SDC) | payer BC ==
[2018-09-04 18:52] VITALS: BMI 28.5
--- NOTE | 2018-09-09 07:31 | P.HPOB ---
History of Present Illness H&P Date: 09/09/18 Chief Complaint: High-grade cervical dysplasia This patient is a pleasant 33-year-old 6 para 4 female who had a high- grade Pap smear during her most recent and colposcopy was done on August 12 which showed CRISTIAN-3 (high-grade dysplasia) on the ectocervix at 5:00. Patient I discussed options for treatment and plan is to proceed with colposcopy with LEEP excision of this area. Past Medical History Past Medical History: Chest Pain / Angina, GERD/Reflux, Hypertension Additional Past Medical History / Comment(s): EPISODE OF CP, ELEV BLOOD PRESSURE 05/2018, 1 wk ; [place]ERD [place] . History of Any Multi-Drug Resistant Organisms: None Reported Past Surgical History: No Surgical Hx Reported Additional Past Surgical History / Comment(s): Colposcopy (DONE IN OFFICE), wisdom teeth extraction. Past Anesthesia/Blood Transfusion Reactions: No Reported Reaction Past Psychological History: Anxiety, Depression Smoking Status: Never smoker Past Alcohol Use History: None Reported Past Drug Use History: None Reported - Past Family History Mother Additional Family Medical History / Comment(s): Mother has anxiety. Father Family Medical History: COPD Medications and Allergies Home Medications Medication Instructions Recorded Confirmed Type Ibuprofen [Motrin] 600 mg PO Q6HR PRN 09/04/18 09/04/18 History LORazepam [Ativan] 0.5 mg PO DAILY PRN 09/04/18 09/04/18 History Sertraline [Zoloft] 50 mg PO DAILY 09/04/18 09/04/18 History Allergies Allergy/AdvReac Type Severity Reaction Status Date / Time No Known Allergies Allergy Verified 09/04/18 18:29 Exam - OBG Physical Exam Abdomen: bowel sounds normal, no diffuse tenderness, no bruit present, no guarding noted, no hepatomegaly, no splenomegaly, no mass Vulva: both: normal Vagina: normal moisture, no discharge Cervix: no lesion (Cervix shows increased acetowhite changes at 12 and 5:00.), no discharge Uterus: normal size Results Colposcopy biopsy of the cervix on August 12 showed CRISTIAN-3 at 5:00. Assessment and Plan Assessment: This is a pleasant 33-year-old 6 para 4 female with high-grade cervical dysplasia on ectocervix plan is colposcopy with LEEP excision of the ectocervix and endocervix. I've had a long discussion with a me about this procedure and risks including risks of infection, bleeding, possible cervical incompetence in future loss. She also understands risk of recurrence and need for close follow-up. All the patient's questions are answered and a written consent is obtained. (1) High grade squamous intraepithelial cervical dysplasia Status: Acute Code(s): R87.613 - HIGH GRADE INTREPITH LESION CYTO SMR CRVX (HGSIL) SNOMED Code(s): 312863695
[~2018-09-10 05:33] MED LIST: DEXAMETHASONE SOD PHOSPHATE 10 MG/ML 1 ML VIAL IV ONE; HYDROmorphone 0.5 MG/0.5 ML SYRINGE IVP PRN; LACTATED RINGERS 1,000 ML IV SCH; LIDOCAINE 1% 20 ML VIAL (10MG/ML) FOR IV START INTRADERMA PRN; MIDAZOLAM 2 MG/2 ML VIAL IV PRN; ONDANSETRON 4 MG/2 ML VIAL IVP ONE; Pre Op ABX Message 1 EACH MISC MISCELLANE ONE; SCOPOLAMINE 1.5MG/72HR PATCH TRANSDERM ONE
[2018-09-10] MEDS ORDERED: fentaNYL (PF) 50 MCG/ML 2 ML AMP ONE (06:38)
[2018-09-10] MEDS ORDERED: MIDAZOLAM 2 MG/2 ML VIAL ONE (06:38)
[2018-09-10] MEDS ORDERED: LIDOCAINE 1% INJ 10MG/ML (20 ML MDV) ONE (06:38)
[2018-09-10] MEDS ORDERED: PROPOFOL 10 MG/ML 20 ML VIAL IV ONE (06:38)
[2018-09-10] MEDS ORDERED: FERRIC SUBSULFATE (MONSELS) JAR TOPICAL ONE (06:58)
[2018-09-10] MEDS ORDERED: IODINE/POTASS IOD (LUGOLS) 14 ML BTL TOPICAL ONE (06:59)
--- NOTE | 2018-09-10 07:18 | P.OP ---
Date of Procedure: 09/10/18 Preoperative Diagnosis: High-grade cervical dysplasia Postoperative Diagnosis: Same Procedure(s) Performed: Colposcopy with LEEP excision of the ectocervix and endocervix Anesthesia: MAC Surgeon: Dilip Sosa Estimated Blood Loss (ml): 25 Urine output (ml): 25 Pathology: other (Endocervix and ectocervix) Condition: stable Disposition: PACU Indications for Procedure: Please see dictated H&P for intimate details of this patient's admission. Brief summary this is a pleasant 33-year-old multiparous patient who had a high-grade abnormal Pap smear during her care. colposcopy confirmed CRISTIAN 3 of the ectocervix. Patient now presents for LEEP excision of this area. I did have a long discussion with the patient about this procedure and risks including risks of infection, bleeding, possible cervical incompetence if she ever became again, possible recurrence or persistence of this abnormality. All the patient's questions are answered and a written consent is obtained. Operative Findings: This patient had acetowhite changes of the ectocervix is demarcated in the office. Description of Procedure: This patient is taken to the operating room where she is laid in the supine position. She subsequently undergoes general mask anesthesia without incident. With an adequate level of anesthesia she's placed in dorsal lithotomy position. She has a vaginal perineal prep and drape. A coated speculum was placed into the vagina the cervix is well visualized. Colposcopy is performed at this time with Lugol solution in the area of abnormality is demarcated. Using a large LEEP loop at a 70/60 cutting cautery setting the entire transformation zone is removed in 2 passes. I then take the small LEEP loop and make a pass of the endocervix. At this time the regular Bovie tip is applied and cauterization is done of the entire Endo and ectocervical margins. Excellent hemostasis is noted. Monsel solution is then applied for added hemostasis. Again excellent hemostasis is noted. This point the speculum was removed. Bladder is drained for 25 mL of clear urine. All counts are correct 3. There are no complications. Patient is taken to the recovery room in satisfactory condition.
[2018-09-10] MEDS ORDERED: KETOROLAC 30 MG/ML 1 ML VIAL IVP ONE (07:19)
[2018-09-10 07:22] VITALS: TEMP 97.3
[2018-09-10 07:29] VITALS: RESP 16
[2018-09-10 08:15] VITALS: BP 142/90; PULSE 69
== END 2018-09-10 08:28 | disposition home or self-care (01) ==
LOC: OR 05:33
PROVIDERS: ATTEND Obstetrics & Gynecology
DX: D06.1 Carcinoma in situ of exocervix (principal); K21.9 Gastro-esophageal reflux disease without esophagitis; I10 Essential (primary) hypertension; F32.9 Major depressive disorder, single episode, unspecified; F41.9 Anxiety disorder, unspecified; Z79.899 Other long term (current) drug therapy
CPT/HCPCS: 81025; 88305; 88307; 57460; J2250; J1100; J2405; J2001; J3010; J1885; J2704

== ENCOUNTER 2019-02-11 23:54 | Emergency (ER) | payer BC ==
[2019-02-12 00:11] VITALS: RESP 18
[2019-02-12] MEDS ORDERED: SODIUM CHLORIDE 0.9% 1,000 ML IV STA (00:53)
[2019-02-12] MEDS ORDERED: ONDANSETRON 4 MG/2 ML VIAL IVP STA (00:53)
[2019-02-12 01:40] LABS: Albumin 5.1 g/dL (3.5-5.0); Calcium 10.6 mg/dL (8.4-10.2); Potassium 4.4 mmol/L (3.5-5.1); Total Bilirubin 0.5 mg/dL (0.2-1.3); Total Protein 8.5 g/dL (6.3-8.2)
[2019-02-12 01:46] LABS: Appearance,Urine Cloudy (Clear); Bacteria,Urine Rare /hpf; Bilirubin,Urine 1+ (Negative); Blood,Urine Negative (Negative); Color,Urine Dark Brown; Glucose,Urine (UA) Negative (Negative); Hyaline Casts,Urine 157 /lpf (0-2); Ketones,Urine Trace (Negative); Leukocyte Esterase,Urine Small (Negative); Mucus,Urine Many /hpf; Nitrite,Urine Negative (Negative); PH, Urine 5.5 (5.0-8.0); Protein,Urine 1+ (Negative); RBC,Urine 2 /hpf (0-5); Specific Gravity,Urine 1.029 (1.001-1.035); Squamous Epithelial Cell,Urine 17 /hpf (0-4); WBC,Urine 9 /hpf (0-5)
[2019-02-12 01:55] LABS: Basophils # (A) 0.1 k/uL (0-0.2); Basophils % (A) 1 %; Eosinophils # (A) 0.1 k/uL (0-0.7); Eosinophils % (A) 1 %; HCT 52.5 % (34.0-46.0); HGB 18.6 gm/dL (11.4-16.0); Lymphocytes # (A) 2.6 k/uL (1.0-4.8); Lymphocytes % (A) 17 %; MCH 32.7 pg (25.0-35.0); MCHC 35.5 g/dL (31.0-37.0); MCV 92.1 fL (80.0-100.0); Mean Platelet Volume 6.1; Monocytes # (A) 0.6 k/uL (0-1.0); Monocytes % (A) 4 %; Neutrophils # (A) 11.4 k/uL (1.3-7.7); Neutrophils % (A) 77 %; Platelet Count 310 k/uL (150-450); WBC 14.8 k/uL (3.8-10.6)
--- NOTE | 2019-02-12 02:14 | XR ---
EXAMINATION TYPE: XR KUB DATE OF EXAM: 02/12/2019 COMPARISON: NONE HISTORY: Nausea and abdominal pain TECHNIQUE: 2 views upright FINDINGS: There is no sign of intestinal obstruction or pneumoperitoneum. Fecal pattern is normal. Melani ng bases are clear. There are no pathologic calcifications. IMPRESSION: Nonacute abdomen.
[2019-02-12] MEDS ORDERED: SODIUM CHLORIDE 0.9% 1,000 ML IV ONE (02:22)
--- NOTE | 2019-02-12 02:25 | ED ---
Nausea/Vomiting/Diarrhea HPI - General Chief complaint: Nausea/Vomiting/Diarrhea Stated complaint: NVD Time Seen by Provider: 02/12/19 00:24 Source: patient, family Mode of arrival: wheelchair Limitations: physical limitation - History of Present Illness Initial comments: 33-year-old female patient presents to the emergency department today for evaluation of nausea, vomiting, diarrhea. Patient stated started this evening around 10 PM. States when she was having a bowel movement and vomiting she became very sweaty and dizzy. States her legs were weak. Patient states she's had 3 episodes of each. Denies hematemesis, hematochezia, or melena. Denies fever or chills. Recent travel or sick contacts. Patient states lasting should he was popcorn and then a coney dog earlier in the day. Denies any significant abdominal pain. Denies any abnormal vaginal bleeding or discharge. She has a history of abdominal surgery. Has not taken any medication for her symptoms. She denies any chance of . Patient denies any recent rash, shortness b reath, chest pain, back pain, numbness, tingling, dizziness, weakness, hematuria, dysuria, urinary urgency, urinary frequency, headache, visual changes, or any other complaints. - Related Data Home Medications Medication Instructions Recorded Confirmed Ibuprofen [Motrin] 600 mg PO Q6HR PRN 09/04/18 09/10/18 LORazepam [Ativan] 0.5 mg PO DAILY PRN 09/04/18 09/10/18 Sertraline [Zoloft] 50 mg PO DAILY 09/04/18 09/10/18 Previous Rx's Medication Instructions Recorded Ibuprofen [Motrin] 600 mg PO Q6HR PRN #40 tab 09/10/18 Allergies Allergy/AdvReac Type Severity Reaction Status Date / Time No Known Allergies Allergy Verified 02/12/19 00:11 Review of Systems ROS Statement: Those systems with pertinent positive or pertinent negative responses have been documented in the HPI. ROS Other: All systems not noted in ROS Statement are negative. Past Medical History Past Medical History: Chest Pain / Angina, GERD/Reflux, Hypertension Additional Past Medical History / Comment(s): EPISODE OF CP, ELEV BLOOD PRESSURE 05/2018, 1 wk ; [place] . History of Any Multi-Drug Resistant Organisms: None Reported Past Surgical History: No Surgical Hx Reported Additional Past Surgical History / Comment(s): Colposcopy (DONE IN OFFICE), wisdom teeth extraction, LEEP SX CERVIX Past Anesthesia/Blood Transfusion Reactions: No Reported Reaction Past Psychological History: Anxiety, Depression Smoking Status: Never smoker Past Alcohol Use History: None Reported Past Drug Use History: None Reported - Past Family History Mother Additional Family Medical History / Comment(s): Mother has anxiety. Father Family Medical History: COPD General Exam Limitations: physical limitation General appearance: alert, in no apparent distress, other (Physical well- developed, well-nourished adult female patient in no acute distress. Vital signs upon presentation are temperature 97.4F, pulse 84, respirations 18, blood pressure 120/91, pulse ox 100% on room air.) Eye exam: Present: normal appearance, PERRL, EOMI. Absent: scleral icterus, conjunctival injection, periorbital swelling ENT exam: Present: normal exam, normal oropharynx, mucous membranes moist Respiratory exam: Present: normal lung sounds bilaterally. Absent: respiratory distress, wheezes, rales, rhonchi, stridor Cardiovascular Exam: Present: regular rate, normal rhythm, normal heart sounds. Absent: systolic murmur, diastolic murmur, rubs, gallop, clicks GI/Abdominal exam: Present: soft, normal bowel sounds. Absent: distended, tenderness, guarding, rebound, rigid Neurological exam: Present: alert, oriented X3, CN II-XII intact Psychiatric exam: Present: normal affect, normal mood Skin exam: Present: warm, dry, intact, normal color. Absent: rash Course Vital Signs 02/12/19 02/12/19 00:04 02:41 Temperature 97.4 F L 98.1 F Pulse Rate 84 80 Respiratory 18 18 Rate Blood Pressure 120/91 112/68 O2 Sat by Pulse 100 100 Oximetry Medical Decision Making - Medical Decision Making 33-year-old female patient presented to the emergency department today for evaluation of vomiting and diarrhea. Patient is also concerned because during her vomiting and diarrhea episode she became very sweaty and weak. Physical examination revealed a soft nontender abdomen. She is neurologically intact with no focal deficits. Vital signs were within normal ranges. Labs reviewed and did reveal evidence for dehydration. No other abnormalities. She'll be discharged at this time at the discretion for Mandi. Symptoms are most likely related to a viral intestinal illness. I did discuss results and findings with the patient. She is instructed to follow-up with her primary care physician for recheck in 1-2 days. Return parameters discussed in detail. She verbalizes understanding and agrees with this plan. - Lab Data Result diagrams: 02/12/19 01:00 02/12/19 01:00 Lab Results 02/12/19 02/12/19 02/12/19 Range/Units 01:00 01:00 01:03 WBC 14.8 H (3.8-10.6) k/uL RBC 5.70 H (3.80-5.40) m/uL Hgb 18.6 H (11.4-16.0) gm/dL Hct 52.5 H (34.0-46.0) % MCV 92.1 (80.0-100.0) fL MCH 32.7 (25.0-35.0) pg MCHC 35.5 (31.0-37.0) g/dL RDW 12.0 (11.5-15.5) % Plt Count 310 (150-450) k/uL Neutrophils % 77 % Lymphocytes % 17 % Monocytes % 4 % Eosinophils % 1 % Basophils % 1 % Neutrophils # 11.4 H (1.3-7.7) k/uL Lymphocytes # 2.6 (1.0-4.8) k/uL Monocytes # 0.6 (0-1.0) k/uL Eosinophils # 0.1 (0-0.7) k/uL Basophils # 0.1 (0-0.2) k/uL Sodium 141 (137-145) mmol/L Potassium 4.4 (3.5-5.1) mmol/L Chloride 103 (98-107) mmol/L Carbon Dioxide 24 (22-30) mmol/L Anion Gap 14 mmol/L BUN 17 (7-17) mg/dL Creatinine 0.97 (0.52-1.04) mg/dL Est GFR (CKD-EPI)AfAm 90 (>60 ml/min/1.73 sqM) Est GFR (CKD-EPI)NonAf 78 (>60 ml/min/1.73 sqM) Glucose 106 H (74-99) mg/dL Calcium 10.6 H (8.4-10.2) mg/dL Total Bilirubin 0.5 (0.2-1.3) mg/dL AST 23 (14-36) U/L ALT 24 (9-52) U/L Alkaline Phosphatase 83 (38-126) U/L Total Protein 8.5 H (6.3-8.2) g/dL Albumin 5.1 H (3.5-5.0) g/dL Lipase 118 (23-300) U/L Urine Color Urine Appearance (Clear) Urine pH (5.0-8.0) Ur Specific [place] (1.001-1.035) Urine Protein (Negative) Urine Glucose (UA) (Negative) Urine Ketones (Negative) Urine Blood (Negative) Urine Nitrite (Negative) Urine Bilirubin (Negative) Urine Urobilinogen (<2.0) mg/dL Ur Leukocyte Esterase (Negative) Urine RBC (0-5) /hpf Urine WBC (0-5) /hpf Ur Squamous Epith Cells (0-4) /hpf Urine Bacteria (None) /hpf Hyaline Casts (0-2) /lpf Urine Mucus (None) /hpf Urine HCG, Qual Not Detected (Not Detectd) 02/12/19 Range/Units 01:03 WBC (3.8-10.6) k/uL RBC (3.80-5.40) m/uL Hgb (11.4-16.0) gm/dL Hct (34.0-46.0) % MCV (80.0-100.0) fL MCH (25.0-35.0) pg MCHC (31.0-37.0) g/dL RDW (11.5-15.5) % Plt Count (150-450) k/uL Neutrophils % % Lymphocytes % % Monocytes % % Eosinophils % % Basophils % % Neutrophils # (1.3-7.7) k/uL Lymphocytes # (1.0-4.8) k/uL Monocytes # (0-1.0) k/uL Eosinophils # (0-0.7) k/uL Basophils # (0-0.2) k/uL Sodium (137-145) mmol/L Potassium (3.5-5.1) mmol/L Chloride (98-107) mmol/L Carbon Dioxide (22-30) mmol/L Anion Gap mmol/L BUN (7-17) mg/dL Creatinine (0.52-1.04) mg/dL Est GFR (CKD-EPI)AfAm (>60 ml/min/1.73 sqM) Est GFR (CKD-EPI)NonAf (>60 ml/min/1.73 sqM) Glucose (74-99) mg/dL Calcium (8.4-10.2) mg/dL Total Bilirubin (0.2-1.3) mg/dL AST (14-36) U/L ALT (9-52) U/L Alkaline Phosphatase (38-126) U/L Total Protein (6.3-8.2) g/dL Albumin (3.5-5.0) g/dL Lipase (23-300) U/L Urine Color Dark Brown Urine Appearance Cloudy H (Clear) Urine pH 5.5 (5.0-8.0) Ur Specific [place] 1.029 (1.001-1.035) Urine Protein 1+ H (Negative) Urine Glucose (UA) Negative (Negative) Urine Ketones Trace H (Negative) Urine Blood Negative (Negative) Urine Nitrite Negative (Negative) Urine Bilirubin 1+ H (Negative) Urine Urobilinogen 3.0 (<2.0) mg/dL Ur Leukocyte Esterase Small H (Negative) Urine RBC 2 (0-5) /hpf Urine WBC 9 H (0-5) /hpf Ur Squamous Epith Cells 17 H (0-4) /hpf Urine Bacteria Rare H (None) /hpf Hyaline Casts 157 H (0-2) /lpf Urine Mucus Many H (None) /hpf Urine HCG, Qual (Not Detectd) - Radiology Data Radiology results: report reviewed, image reviewed 2 views of the abdomen are obtained. Report was reviewed in its entirety. Impression by Dr. Crain shows nonacute abdomen Disposition Clinical Impression: Vomiting and diarrhea Disposition: HOME SELF-CARE Condition: Good Instructions (If sedation given, give patient instructions): Acute Nausea and Vomiting (ED), Acute Diarrhea (ED) Additional Instructions: Take medication as directed. Rest. Start with clear liquid diet and advance as tolerated. Follow-up with your primary care physician for recheck in 1-2 days. Return to the emergency department immediately for any new, worsening, or concerning symptoms. Is patient prescribed a controlled substance at d/c from ED?: No Referrals: Alexandra Mejia MD [Primary Care Provider] - 1-2 days Time of Disposition: 02:45
[2019-02-12 02:42] VITALS: BP 112/68; PULSE 80; TEMP 98.1
[2019-02-12] MEDS ORDERED: ONDANSETRON 4 MG ODT STARTER PACK 2 TAB BTL PO STA (02:42)
== END 2019-02-12 03:16 | disposition home or self-care (01) ==
LOC: EC 23:54
DX: R11.10 Vomiting, unspecified (principal); R19.7 Diarrhea, unspecified; R42 Dizziness and giddiness; E86.0 Dehydration; Z32.02 Encounter for pregnancy test, result negative; F41.9 Anxiety disorder, unspecified; F32.9 Major depressive disorder, single episode, unspecified; Z79.899 Other long term (current) drug therapy
CPT/HCPCS: 36415; 80053; 83690; 85025; 81001; 81025; 74018; 99284; 96374; 96361 ×2; J2405; S0119

== ENCOUNTER → 2021-06-17 | Outpatient (CLI) | payer BC ==
--- NOTE | 2021-06-17 12:44 | US ---
EXAMINATION TYPE: US abdomen complete DATE OF EXAM: 06/17/2021 COMPARISON: NONE CLINICAL HISTORY: R10.9 abd pain. Abdominal pain for the past 2 months EXAM MEASUREMENTS: Liver Length: 18.4 cm Gallbladder Wall: 0.3 cm CBD: 0.4 cm Spleen: 11.1 x 3.8 cm Right Kidney: 11.5 x 5.2 x 5.3 cm Left Kidney: 10.1 x 5.8 x 4.8 cm Pancreas: wnl Liver: Upper limits in size Gallbladder: Multiple echogenic foci seen in wall largest measuring 0.5 x 0.6 x 0.5cm Evidence for sonographic Chong's sign: No CBD: wnl Spleen: wnl Right Kidney: No hydronephrosis or masses seen Left Kidney: No hydronephrosis or masses seen Upper IVC: wnl Abd Aorta: wnl No abnormalities seen at this time. The liver is homogenous. The intrahepatic portion of the IVC and proximal abdominal aorta are within normal limits. Common bile duct is unremarkable. The visualized portions of the pancreas are homog enous. The spleen is unremarkable. Kidneys are symmetric and free of hydronephrosis. No renal lesi ons are seen. IMPRESSION: There is evidence of cholelithiasis.
== END | disposition home or self-care (01) ==
LOC: RADUSWWP 12:02
PROVIDERS: ATTEND Internal Medicine
DX: K80.20 Calculus of gallbladder without cholecystitis without obstruction (principal)
CPT/HCPCS: 76700

== ENCOUNTER → 2023-08-01 | Outpatient (CLI) | payer BC ==
--- NOTE | 2023-08-01 17:42 | US ---
EXAMINATION TYPE: US pelvis complete transvag DATE OF EXAM: 08/01/2023 COMPARISON: NONE CLINICAL INDICATION: Female, 38 years old with history of R10.2 PELVIC AND PERINEAL PAIN; Left pelvic painx 1 month TECHNIQUE: . Transabdominal sonographic images of the pelvis were acquired. Transvaginal sonographi c images were medically necessary to better assess the following anatomy: ovaries Date of LMP: 07/26/2023 EXAM MEASUREMENTS: Uterus: 10.2 x 4.8 x 5.3 cm Endometrial Stripe: 0.6 cm Right Ovary: 3.0 x 2.2 x 1.8 cm Left Ovary: 4.1 x 1.0 x 2.5 cm 1. Uterus: Anteverted Heterogenous 2. Endometrium: wnl 3. Right Ovary: Not visualized TA, limited visualization TV; WNL as vis 4. Left Ovary: Not visualized TA, limited visualization TV; WNL as vis 5. Bilateral Adnexa: wnl 6. Posterior cul-de-sac: wnl IMPRESSION: 1. No evidence for acute pelvic process. 2. Endometrium within normal limits for thickness. 3. Limited evaluation of ovaries due to overlapping bowel.
== END | disposition home or self-care (01) ==
LOC: RADUSWWP 14:52
PROVIDERS: ATTEND Internal Medicine
DX: R10.2 Pelvic and perineal pain (principal); R93.89 Abnormal findings on diagnostic imaging of other specified body structures
CPT/HCPCS: 76830; 76856

== ENCOUNTER → 2023-09-03 | Outpatient (CLI) | payer BC ==
--- NOTE | 2023-09-06 09:59 | CT ---
EXAMINATION TYPE: CT abdomen pelvis w con CT DLP: 1618.7 mGycm, Automated exposure control for dose reduction was used. DATE OF EXAM: 09/05/2023 12:48 PM COMPARISON: CT abdomen pelvis most recent from CLINICAL INDICATION:Female, 38 years old with history of R93.41 ABNORMAL FINDINGS DIAGNOSTIC IMAGING PELVIS; LLQ pain TECHNIQUE: Axial CT abdomen pelvis w con;Sagittal and coronal reformats were created on a separate w orkstation. Contrast used:100 mL of Isovue 300 with IV Contrast, (none if empty) Oral contrast used: with Oral Contrast (none if empty) FINDINGS: LOWER CHEST: Unremarkable ABDOMEN LIVER: Unremarkable GALLBLADDER AND BILE DUCTS: Unremarkable. PANCREAS: Unremarkable. SPLEEN: Unremarkable. ADRENAL GLANDS: Unremarkable. KIDNEYS AND URETERS: No evidence of hydronephrosis or renal calculus. The ureters are unremarkable. PELVIS BLADDER: Unremarkable REPRODUCTIVE: Unremarkable. ABDOMEN & PELVIS STOMACH AND BOWEL: Stomach and duodenum are unremarkable. Normal appendix identified. No evidence of bowel obstruction. PERITONEUM/RETROPERITONEUM: No evidence of pneumoperitoneum or free fluid. VASCULATURE: No evidence of aortic aneurysm. MUSCULOSKELETAL: No acute osseous abnormalities LYMPH NODES: No gross evidence for lymphadenopathy. SOFT TISSUE/ABDOMINAL WALL: Unremarkable IMPRESSION: 1. Unremarkable CT abdomen and pelvis. No abnormality of the reproductive tract
== END | disposition home or self-care (01) ==
LOC: RADCTMAIN 09:59
PROVIDERS: ATTEND Internal Medicine
DX: R93.41 Abnormal radiologic findings on diagnostic imaging of renal pelvis, ureter, or bladder (principal)
CPT/HCPCS: 74177; Q9967